=== PATIENT | female | born 2005 | race Caucasian/White ===

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

== ENCOUNTER 2025-01-23 20:42 | Inpatient (IN) ==
[2025-01-23] MEDS: SODIUM CHLORIDE 0.9% 1,000 ML IV ONE (21:43)
[2025-01-23 22:03] LABS: Basophils # (auto) 0.05 K/uL (0.00-0.20); Basophils % (auto) 0.6 %; Eosinophils # (auto) 0.44 K/uL (0.00-0.50); Eosinophils % (auto) 5.2 %; Hematocrit (blood only) 37.6 % (37.0-47.0); Hemoglobin 13.2 g/dl (12.0-16.0); Immature Granulocytes # (auto) 0.03 K/uL (0.01-0.20); Immature Granulocytes % (auto) 0.4 %; Lymphocytes # (auto) 2.82 K/uL (1.20-3.40); Mean Corpuscular Hemoglobin 31.3 pg (25.0-34.0); Mean Corpuscular Hgb Conc 35.1 g/dL (32.0-36.0); Mean Corpuscular Volume 89.1 fL (80.0-100.0); Mean Platelet Volume 9.8 fL (9.4-12.4); Monocytes # (auto) 0.72 K/uL (0.11-0.59); Monocytes % (auto) 8.4 %; Neutrophils # (auto) 4.48 K/uL (1.40-6.50); Neutrophils % (auto) 52.4 %; Platelet Count 286 K/uL (130-400); RDW Coefficient of Variation 12.2 % (11.5-14.5); RDW Standard Deviation 39.9 fL (36.4-46.3); Red Blood Count 4.22 M/uL (4.20-5.40); White Blood Count 8.54 K/ul (4.8-10.8)
[2025-01-23 22:18] LABS: Pregnancy Test, Serum Negative (Negative)
[2025-01-23 22:22] LABS: Alanine Aminotransferase 15 U/L (7-52); Albumin Globulin Ratio 1.3 (0.9-2); Albumin Level 4.2 gm/dl (3.4-5.0); Alkaline Phosphatase 52 U/L (34-104); Anion Gap 5 (3-11); Aspartate Aminotransferase 15 U/L (13-39); BUN Creatinine Ratio 18.5 (10-20); Bilirubin,Total 0.2 mg/dl (0.2-1.0); Blood Urea Nitrogen 12 mg/dl (6-23); Calcium 9.1 mg/dl (8.6-10.3); Carbon Dioxide 28 mmol/L (21-32); Chloride 106 mmol/L (98-107); Creatinine Clr Calc Pharmacy 116.3 ml/min; Globulin 3.3 gm/dl (2.5-4.0); Glucose 83 mg/dl (70-99(Fasting)); Potassium 3.5 mmol/L (3.5-5.1); Sodium 139 mmol/L (136-145); Total Protein 7.5 gm/dl (6.0-8.3)
[2025-01-23 22:27] LABS: Troponin I High Sensitivity 4.5 pg/ml (0-14)
[2025-01-23 22:31] LABS: D Dimer 410 ug/L FEU (0-500); INR 0.9 (0.9-1.1); Partial Thromboplastin Ratio 0.9; Partial Thromboplastin Time 23 Seconds (21-31); Prothrombin Time 9.6 Seconds (9.0-12.0)
--- NOTE | 2025-01-23 22:55 | Emergency Department Note ---
Impression & Plan Pain and swelling of right forearm, Upper extremity lymphadenopathy, Axillary lymphadenopathy, Cervical lymphadenopathy, Tonsillitis ED Provider Note NAME: AUREA FLORENCE AGE: 19 SEX: F : 2005 ARRIVES VIA: Walk-In INFORMANT: Patient ED PROVIDER(S): Gilles Ozuna MD CHIEF COMPLAINT: Arm swelling pain, shortness of breath PLAN: Disposition: Admit MEDICAL DECISION MAKING: The patient is a pleasant 19-year-old woman with a past medical history of anxiety, headaches, urethral stricture who presents to the emergency department via walk-in, and by her boyfriend for evaluation of ongoing right forearm swelling, redness, warmth and pain for the past week in the setting of being seen in this emergency department on 01/20 for the same symptoms. The patient had CTA of the chest that was negative for PE. She had a right upper extremity ultrasound that was negative for DVT though enlarged axillary lymph node was described. Patient reports she has since seen her PCP and a throat culture was obtained which resulted today for Staph aureus. She was prescribed an antibiotic which she took but reports pain was worsening and so presents again for evaluation. Patient reports having increasing pain in her arm which now has extended into her chest even more and she has shortness of breath associated with this. She reports right-sided neck pain and head pain. She reports feeling feverish intermittently. She correlates these symptoms with onset of sinus congestion/infection approximately 6 weeks ago and then developing sore throat and symptoms of pharyngitis a month ago. Per review of the patient's records patient has been treated with antibiotics at different points in time including Augmentin and doxycycline. Patient denies any history of back IV drug use. She denies any falls or trauma. Of note, the patient did arrive to emergency department during time of high volume, acuity and prolonged emergency department waiting times. Critical pathways initiated from triage. On evaluation the patient is anxious appearing but no acute distress, afebrile heart in the 100s and blood pressure 160s/90s and vital signs otherwise stable. She appears clinically dry. Moderate tonsillar enlargement and injection and scant exudates. Lungs clear. No murmurs, rubs, or gallops. Her right forearm demonstrates swelling/fullness of the volar aspect with associated erythema warmth and tenderness. There is no significant pain with passive stretch. Distal PMS is intact. Erythema does extend proximally to the axilla where she has tender lymphadenopathy. Given persistence of the patient's symptoms blood cultures were obtained and empiric broadened antibiotic treatment initiated with IV ceftriaxone and daptomycin. WBC, H/H and platelets within normal limits. Chemistry without metabolic acidosis. Electrolytes and LFTs without significant abnormality. CPK within normal limits. ESR and CRP are normal. D-dimer is 410, within normal limits. High-sensitivity troponin 4.5, within normal limits. UA without evidence of infection. Right upper extremity ultrasound was repeated and was negative for DVT. Enlarged axillary lymph node is unchanged. CT imaging of the right upper extremity as well as neck and head were obtained to further characterize the location of the patient's symptoms. CT soft tissue neck demonstrated bilateral multiple enlarged cervical lymph nodes as well as mild hypertrophy of the adenoids. CT of the head was negative for acute abnormalities. CT of the right humerus with redemonstration of a right epitrochlear lymph node where there is mild progression in size compared to previous though could be related to different modality. The epitrochlear lymphadenopathy is nonspecific. Additional right axillary lymph nodes are noted. CT of the forearm also obtained with report pending. Patient agrees with plan for referral to hospitalist service for consideration of admission given worsening symptoms despite prior ER visit and outpatient management. Case was d/w Dr. Leyva [facility] [place] [place] hospitalist who will evaluate the patient for admission. Further management per admitting team. Triage Nursing notes reviewed and agree them. Prior/external medical records reviewed Vital Signs: reviewed Differential diagnosis: DVT, musculoskeletal, infection, joint effusion, trauma, lymphedema, idiopathic, CHF, as well as other pathologies. ER treatment provided: See below. Diagnostics interpreted by me: ECG: Normal sinus rhythm, 91 bpm, no ectopy, no overt ST elevation or depression, QTc 383, QRS 74. Cardiac Monitoring: An order for continuous cardiac monitoring was placed and demonstrated Normal sinus rhythm, 91 bpm, no ectopy. Laboratory studies: See below Imaging studies: See below Consultation(s): Dr. Staton [facility] [place] [place] hospitalist. HPI: Per MDM. ROS: See above HPI for pertinent positives & negatives. A total of 10 systems reviewed and were otherwise negative. VITALS:See Below PHYSICAL EXAMINATION: GENERAL: Awake, alert, well-appearing, in no distress HENT: Normocephalic, atraumatic. Oropharynx with moderate tonsillar enlargement and injection and scant exudates. EYES: Normal conjunctiva. Sclera non-icteric. NECK: Supple. No nuchal rigidity. FROM. No JVD. RESPIRATORY: Clear to auscultation. CARDIAC: Tachycardic rate, normal rhythm. Extremities warm and well perfused. Pulses equal. ABDOMEN: Soft, non-distended. No tenderness to palpation. No rebound or guarding. No masses. MUSCULOSKELETAL: Chest examination reveals no tenderness. The back is symmetrical on inspection without obvious abnormality. There is no CVA tenderness to palpation. Right forearm demonstrates swelling/fullness of the volar aspect with associated erythema warmth and tenderness. There is no significant pain with passive stretch. Distal PMS is intact. Erythema does extend proximally to the axilla where she has tender lymphadenopathy. LOWER EXTREMITIES: Calves are equal size bilaterally and non-tender. No edema. No discoloration. NEURO: Normal sensorium. No sensory or motor deficits noted. SKIN: No rash or jaundice noted. Gilles Ozuna MD Past Med/Surg History Problem List (Updated 01/24/25 @ 15:38 by Nieves Brand MD) LAD (lymphadenopathy), generalized Pharyngitis Tonsillitis (Acute) Cervical lymphadenopathy (Acute) Axillary lymphadenopathy (Acute) Upper extremity lymphadenopathy (Acute) Pain and swelling of right forearm (Acute) Vasculitis (Acute) Lymph node enlargement (Acute) Edema (Acute) Recurrent cold sores Large tonsils Allergies Muscle tightness Acute sore throat (Acute) Symptoms of upper respiratory infection (URI) (Acute) Frequent UTI Right ear pain Uses control Amenorrhea Dysuria (Acute) Optic disc edema Depression Anxiety (Chronic) Low back pain (Acute) Frequent headaches Scoliosis (Chronic) Medical History Influenza A Acute URI of multiple sites Syrinx of spinal cord Concussion (~11/2019) Abdominal pain Head ache Acute pharyngitis Insect bites Ovarian cyst Kidney stone URI (upper respiratory infection) Otitis media Bronchitis Surgical History No significant past surgical history Family History Mother Diabetes Hyperthyroidism Suicidal risk Grandmother (Maternal) Hypertension Breast cancer great maternal grandmother Grandfather (Maternal) Diabetes Colorectal cancer Other No pertinent family history Denies family history of Ovarian cancer Prostate cancer Social History Smoking Status: Current every day smoker Tobacco Type: E-cigarettes / Vaping Second Hand Exposure: Yes; Do You Dip or Chew Tobacco: No; Tobacco Cessation Education Requested by Patient: No Hx Alcohol Use: No Hx Substance Use: No Preferred Language: Stateless Communication Ability: Effective Physician General Practice Required: No Beliefs That Will Affect Care: None marital status: Single Current Living Situation: Family Current Living Situation Comment: lives with family current occupational status: employed and student How many Children do You have: 0 Other Information That Helps Us Care for You: No Feels Safe at Home: Yes Safety Concerns: Feels Safe At This Time Childhood Exposure to Second-Hand Smoke: Yes Diet: regular Dental Care, Regularly: Yes Physical Activity Frequency: Daily Seatbelt Use: always Sunscreen Use: Yes Assistive Devices: None Allergies Allergies Allergy/AdvReac Type Severity Reaction Status Date / Time soap Allergy UTI, YEAST Verified 01/18/25 13:57 INFECTION Home Meds Home Medications Medication Instructions Recorded Confirmed ascorbate calcium (vitamin C) 500 500 mg PO DAILY 01/05/25 01/23/25 mg tablet Previous Rx's Medication Instructions Recorded duloxetine 60 mg capsule,delayed 60 mg PO DAILY 3 months #90 caps 02/16/24 release Microgestin 1/20 (21) 1 mg-20 mcg 1 tab PO DAILY #84 tabs 01/06/25 tablet (norethindrone ac-eth estradiol) penicillin V potassium 500 mg 500 mg PO BID #20 tabs 01/18/25 tablet valacyclovir 500 mg tablet 500 mg PO BID PRN cold sore 3 days 01/18/25 #6 tabs prednisone 10 mg tablet 40 mg (4 x 10 mg) PO DAILY 7 days 01/23/25 #28 tabs Results & Data (ED) Vital Signs Vital Signs - 24 hr 01/23/25 20:44 01/23/25 20:50 01/23/25 21:09 Temperature 36.7 C Temperature Source Temporal Artery Scan Pulse Rate 106 H 95 H Pulse Rate [Apical] Pulse Rhythm Regular Pulse Rhythm [Apical] Pulse Strength Normal Respiratory Rate 17 Respiratory Effort / Characteristics Non-Labored Spontaneous Respiratory Depth Normal Respiratory Pattern Regular Blood Pressure 161/96 H Blood Pressure [Left Arm] Blood Pressure Mean 117 Blood Pressure Mean [Left Arm] Blood Pressure Position Sitting Pulse Oximetry 100 95 Oxygen Delivery Method Room Air Room Air Sepsis Recent Fever Within 48 Hours Yes Sepsis New/Unexplained Change in Mental Status N/A Sepsis Action Taken by Nursing No Action Required 01/23/25 21:30 01/23/25 21:32 01/23/25 23:00 Temperature Temperature Source Pulse Rate Pulse Rate [Apical] 94 H 82 Pulse Rhythm Pulse Rhythm [Apical] Regular Pulse Strength Respiratory Rate 27 H 19 Respiratory Effort / Characteristics Non-Labored Respiratory Depth Normal Respiratory Pattern Blood Pressure Blood Pressure [Left Arm] 131/90 139/87 Blood Pressure Mean Blood Pressure Mean [Left Arm] 103 104 Blood Pressure Position Pulse Oximetry 94 97 Oxygen Delivery Method Room Air Room Air Sepsis Recent Fever Within 48 Hours Sepsis New/Unexplained Change in Mental Status Sepsis Action Taken by Nursing 01/24/25 01:00 01/24/25 01:09 Temperature Temperature Source Pulse Rate 94 H Pulse Rate [Apical] 90 Pulse Rhythm Pulse Rhythm [Apical] Pulse Strength Respiratory Rate 20 Respiratory Effort / Characteristics Respiratory Depth Respiratory Pattern Blood Pressure Blood Pressure [Left Arm] 133/91 Blood Pressure Mean Blood Pressure Mean [Left Arm] 105 Blood Pressure Position Pulse Oximetry 98 Oxygen Delivery Method Room Air Sepsis Recent Fever Within 48 Hours Sepsis New/Unexplained Change in Mental Status Sepsis Action Taken by Nursing Laboratory Data Attestation: I reviewed the patient's lab results. 01/23/25 20:57 01/23/25 20:57 Lab Results 01/23/25 01/23/25 01/23/25 Range/Units 20:57 21:58 23:32 WBC 8.54 (4.8-10.8) K/ul RBC 4.22 (4.20-5.40) M/uL Hgb 13.2 (12.0-16.0) g/dl Hct 37.6 (37.0-47.0) % MCV 89.1 (80.0-100.0) fL MCH 31.3 (25.0-34.0) pg MCHC 35.1 (32.0-36.0) g/dL RDW Std Deviation 39.9 (36.4-46.3) fL RDW Coeff of Caty 12.2 (11.5-14.5) % Plt Count 286 (130-400) K/uL MPV 9.8 (9.4-12.4) fL Immature Gran % (Auto) 0.4 % Neut % (Auto) 52.4 % Lymph % (Auto) 33.0 % Saline % (Auto) 8.4 % Eos % (Auto) 5.2 % Baso % (Auto) 0.6 % Neut # (Auto) 4.48 (1.40-6.50) K/uL Lymph # (Auto) 2.82 (1.20-3.40) K/uL Saline # (Auto) 0.72 H (0.11-0.59) K/uL Eos # (Auto) 0.44 (0.00-0.50) K/uL Baso # (Auto) 0.05 (0.00-0.20) K/uL Immature Gran # (Auto) 0.03 (0.01-0.20) K/uL ESR 20 (0-20) mm/hr PT 9.6 (9.0-12.0) Seconds INR 0.9 (0.9-1.1) APTT 23 (21-31) Seconds PTT Ratio 0.9 D-Dimer 410 (0-500) ug/L FEU Sodium 139 (136-145) mmol/L Potassium 3.5 (3.5-5.1) mmol/L Chloride 106 (98-107) mmol/L Carbon Dioxide 28 (21-32) mmol/L Anion Gap 5 (3-11) BUN 12 (6-23) mg/dl Creatinine 0.65 (0.6-1.2) mg/dl Est Cr Clr Drug Dosing 116.3 ml/min eGFR 129.18 BUN/Creatinine Ratio 18.5 (10-20) Glucose 83 (70-99(Fasting)) mg/dl Lactate 1.3 (0.4-2.0) mmol/L Calcium 9.1 (8.6-10.3) mg/dl Total Bilirubin 0.2 (0.2-1.0) mg/dl AST 15 (13-39) U/L ALT 15 (7-52) U/L Alkaline Phosphatase 52 (34-104) U/L Total Creatine Kinase 115 (26-192) U/L Troponin I High Sens 4.5 (0-14) pg/ml C-Reactive Protein < 0.50 (0-0.5) mg/dl Total Protein 7.5 (6.0-8.3) gm/dl Albumin 4.2 (3.4-5.0) gm/dl Globulin 3.3 (2.5-4.0) gm/dl Albumin/Globulin Ratio 1.3 (0.9-2) Procalcitonin < 0.02 (0-0.5) ng/ml HCG, Qual Negative (Negative) Urine Color Yellow Urine Appearance Turbid A (Clear) Urine pH 7.5 (4.5-7.5) Ur Specific [place] 1.017 (1.000-1.030) Urine Protein Negative (Negative) Urine Glucose (UA) Negative (Negative) Urine Ketones Negative (Negative) Urine Blood Trace H (Negative) Urine Nitrite Negative (Negative) Urine Bilirubin Negative (Negative) Urine Urobilinogen Negative (Negative) Ur Leukocyte Esterase Negative (Negative) Urine WBC (Auto) 0-5 (0-5) /hpf Urine RBC (Auto) 3-5 H (0-2) /hpf U Hyaline Cast (Auto) 0-2 (0-2) /lpf U Epithel Cells (Auto) 0-2 (0-2) /hpf Urine Bacteria (Auto) None Seen (None Seen) Nasal Screen MRSA (PCR) (Negative) 01/24/25 Range/Units 02:22 WBC (4.8-10.8) K/ul RBC (4.20-5.40) M/uL Hgb (12.0-16.0) g/dl Hct (37.0-47.0) % MCV (80.0-100.0) fL MCH (25.0-34.0) pg MCHC (32.0-36.0) g/dL RDW Std Deviation (36.4-46.3) fL RDW Coeff of Caty (11.5-14.5) % Plt Count (130-400) K/uL MPV (9.4-12.4) fL Immature Gran % (Auto) % Neut % (Auto) % Lymph % (Auto) % Saline % (Auto) % Eos % (Auto) % Baso % (Auto) % Neut # (Auto) (1.40-6.50) K/uL Lymph # (Auto) (1.20-3.40) K/uL Saline # (Auto) (0.11-0.59) K/uL Eos # (Auto) (0.00-0.50) K/uL Baso # (Auto) (0.00-0.20) K/uL Immature Gran # (Auto) (0.01-0.20) K/uL ESR (0-20) mm/hr PT (9.0-12.0) Seconds INR (0.9-1.1) APTT (21-31) Seconds PTT Ratio D-Dimer (0-500) ug/L FEU Sodium (136-145) mmol/L Potassium (3.5-5.1) mmol/L Chloride (98-107) mmol/L Carbon Dioxide (21-32) mmol/L Anion Gap (3-11) BUN (6-23) mg/dl Creatinine (0.6-1.2) mg/dl Est Cr Clr Drug Dosing ml/min eGFR BUN/Creatinine Ratio (10-20) Glucose (70-99(Fasting)) mg/dl Lactate (0.4-2.0) mmol/L Calcium (8.6-10.3) mg/dl Total Bilirubin (0.2-1.0) mg/dl AST (13-39) U/L ALT (7-52) U/L Alkaline Phosphatase (34-104) U/L Total Creatine Kinase (26-192) U/L Troponin I High Sens (0-14) pg/ml C-Reactive Protein (0-0.5) mg/dl Total Protein (6.0-8.3) gm/dl Albumin (3.4-5.0) gm/dl Globulin (2.5-4.0) gm/dl Albumin/Globulin Ratio (0.9-2) Procalcitonin (0-0.5) ng/ml HCG, Qual (Negative) Urine Color Urine Appearance (Clear) Urine pH (4.5-7.5) Ur Specific [place] (1.000-1.030) Urine Protein (Negative) Urine Glucose (UA) (Negative) Urine Ketones (Negative) Urine Blood (Negative) Urine Nitrite (Negative) Urine Bilirubin (Negative) Urine Urobilinogen (Negative) Ur Leukocyte Esterase (Negative) Urine WBC (Auto) (0-5) /hpf Urine RBC (Auto) (0-2) /hpf U Hyaline Cast (Auto) (0-2) /lpf U Epithel Cells (Auto) (0-2) /hpf Urine Bacteria (Auto) (None Seen) Nasal Screen MRSA (PCR) Negative (Negative) Administered Medications Bacitracin (Bacitracin Oint 14 Gm Tube) 1 appln EXT BID BRANDON Stop: 02/23/25 20:59 Last Admin: 01/24/25 20:14 Dose: 1 appln Documented By: BENY Duloxetine HCl (Duloxetine Hcl 60 Mg Cap) 60 mg PO DAILY BRANDON Stop: 02/23/25 08:59 Last Admin: 01/24/25 10:33 Dose: 60 mg Documented By: Miscellaneous (Microgestin 10/10: Order Awaiting Action) 1 each N/A QS BRANDON Stop: 02/23/25 07:59 Last Admin: 01/24/25 23:58 Dose: Not Given Documented By: Admin: 01/24/25 19:34 Dose: Not Given Documented By: Admin: 01/24/25 09:52 Dose: Not Given Documented By: Discontinued Medications Diphenhydramine HCl (Diphenhydramine 50 Mg/Ml Vial) Confirm Administered Dose 50 mg .ROUTE .STK-MED ONE Stop: 01/24/25 08:35 Last Admin: 01/24/25 08:37 Dose: 50 mg Documented By: Epinephrine HCl (Epinephrine Inj 1 Mg/Ml Amp) Confirm Administered Dose 2 mg .ROUTE .STK-MED ONE Stop: 01/24/25 08:36 Last Admin: 01/24/25 09:52 Dose: Not Given Documented By: Famotidine (Famotidine 20 Mg Tab) Confirm Administered Dose 40 mg .ROUTE .STK- MED ONE Stop: 01/24/25 08:37 Last Admin: 01/24/25 11:34 Dose: Not Given Documented By: Sodium Chloride (Nss) 1,000 mls @ 999 mls/hr IV .Q1H1M ONE Stop: 01/23/25 22:04 Last Infusion: 01/23/25 23:17 Dose: Infused Documented By: Admin: 01/23/25 21:43 Dose: 999 mls/hr Documented By: MYNOR Ceftriaxone Sodium (Rocephin) 2,000 mg in 50 mls @ 100 mls/hr IV NOW STA Stop: 01/23/25 23:33 Last Infusion: 01/24/25 01:11 Dose: Infused Documented By: Admin: 01/24/25 00:40 Dose: 100 mls/hr Documented By: MYNOR Daptomycin 775 mg/ Syringe 15.5 mls @ 7.75 mls/min IV NOW ONE; Protocol Stop: 01/23/25 23:15 Last Admin: 01/24/25 01:07 Dose: 7.75 mls/min Documented By: MYNOR Vancomycin HCl 1,500 mg/ (Sodium Chloride) 530 mls @ 200 mls/hr IV Q12H BRANDON Stop: 02/03/25 05:59 Last Infusion: 01/24/25 15:56 Dose: Infused Documented By: Admin: 01/24/25 06:46 Dose: 200 mls/hr Documented By: PROSPER Ioversol (Optiray 320 100ml) 100 ml IV ONCE ONE Stop: 01/24/25 00:11 Last Admin: 01/24/25 00:10 Dose: 93 ml Documented By: GARRY Methylprednisolone (Methylprednisolone 125 Mg/2 Ml Vial) Confirm Administered Dose 250 mg .ROUTE .STK-MED ONE Stop: 01/24/25 08:35 Last Admin: 01/24/25 09:54 Dose: Not Given Documented By: Mupirocin (Mupirocin 2% Oint 22 Gm Tube) 1 appln EXT NOW STA Stop: 01/24/25 01:19 Last Admin: 01/24/25 02:41 Dose: Not Given Documented By: MYNOR Imaging Data Radiologist's Impression: Chest X-Ray 01/23/25 20:50 Exam(s): XR CXR 1 VIEW EXAM: XR Chest, 1 View CLINICAL HISTORY: Reason for exam: Chest pain, nonspecific. TECHNIQUE: Frontal view of the chest. COMPARISON: Chest x-ray 06/12/2023 FINDINGS: Lungs: No consolidation. No overt edema. Pleural space: No pleural effusion. No pneumothorax. Heart: Unremarkable. No cardiomegaly. IMPRESSION: No acute cardiopulmonary abnormality. Electronically signed by: Brent Roberts MD 01/23/25 22:52 PM Venous Doppler Study 01/23/25 20:50 EXAM: US venous doppler UE RT CLINICAL HISTORY: Arm deep vein thrombosis (DVT) suspected. TECHNIQUE: Ultrasound examination of the right upper extremity veins was performed in real time and duplex. One or more of the following were performed: spectral analysis, resistive index, waveform analysis, and pulsed Doppler. COMPARISON: 01/20/2025. FINDINGS: Normal phasic, non-pulsatile, and spontaneous flow is noted in the left Internal jugular, subclavian, axillary, brachial, basilic, cephalic, radial, and ulnar veins. Visualized veins of the left upper extremity demonstrate normal compressibility. No sonographic evidence of acute deep vein thrombosis (DVT) is detected in the visualized veins of the upper extremity. Compression and Augmentation: All evaluated veins compress fully with applied transducer pressure. Augmentation of venous flow is noted with distal compression. Additional Findings: Redemonstration of a prominent lymph node in the mid-upper arm, just adjacent to the basilic vein, measuring 1.9 x 0.6 x 0.8 cm, showing an intact hilum. IMPRESSION: No sonographic evidence of acute DVT is detected at the time of examination. Redemonstration of a prominent lymph node, which shows no interval change. Disclaimer: DVT could be missed early in the disease when clot burden is minimal. For patients with moderate and high pretest probability of DVT and negative ultrasound, the [employer] clinical guidelines recommend testing with a D-dimer assay or repeat ultrasound in 5-7 days. If symptoms worsen, the Society of radiologists in ultrasound recommends repeating ultrasound even earlier. Electronically signed by Jasiel Menon 01-24-2025 12:[address] 01/23/25 23:00 EXAM: CT head/brain wo con CLINICAL HISTORY: Headache, axillary lymphadenopathy TECHNIQUE: Axial non-contrast CT scan of the brain was performed from the skull base to the high parietal region. One of the following dose reduction techniques were utilized for this exam: Automated exposure control, adjustment of the mA and/or kV according to patient size, use of iterative reconstruction. COMPARISON: Prior MRI brain on 12/10/[address] head on 10/03/2017 FINDINGS: Brain Parenchyma: Normal attenuation of the cerebral hemispheres, cerebellum, and brainstem. No evidence of acute infarct, hemorrhage, or mass effect. No abnormal areas of hypo- or hyperattenuation. Ventricular System: Ventricles are normal in size and configuration. No evidence of hydrocephalus or ventricular enlargement. Subarachnoid Spaces: Normal sulci and cisterns. No evidence of subarachnoid hemorrhage or extra-axial fluid collections. Cerebellum and Brainstem: Normal size and signal. No masses, lesions, or areas of abnormal density. Orbits: Normal appearance of the globes, optic nerves, and extraocular muscles. No evidence of orbital masses or abnormal density. Sinuses: The visualized parts of the paranasal sinuses are clear. No evidence of sinusitis or mucosal thickening. Mastoid Air Cells: Clear mastoid air cells. No evidence of mastoiditis. Skull: Normal skull morphology. IMPRESSION: 1. Normal CT of the head without contrast. 2. No significant interval changes. Electronically signed by Jasiel Menon 01-24-2025 01:43 AM Soft Tissue Neck CT 01/23/25 23:00 EXAM: CT soft tissue neck w con CLINICAL HISTORY: neck pain, axillary lymphadenopathy TECHNIQUE: CT scan of the neck was performed with administration of intravenous contrast. Sagittal and coronal reconstructions were obtained. 93 ML OPTIRAY 320 was administered for post contrast images. One of the following dose reduction techniques were utilized for this exam: Automated exposure control, adjustment of the mA and/or kV according to patient size, and use of iterative reconstruction. COMPARISON: None. FINDINGS: Nasopharynx: There is mild enlargement of soft tissues along the posterior nasopharyngeal wall with mild narrowing of posterior nasopharynx. Oropharynx: Normal size and appearance. No masses or abnormal enhancement. Larynx and Hypopharynx: Normal appearance of the laryngeal structures. Vocal cords are normal in appearance and movement. No masses or abnormal enhancement. Thyroid Gland: Mildly enlarged thyroid gland. No discrete nodules or masses. Normal enhancement post-contrast. Salivary Glands: Parotid, submandibular, and sublingual glands are normal in size and appearance. No evidence of sialadenitis or masses. Lymph Nodes: There are multiple bilateral mildly enlarged, slightly enhancing cervical lymph nodes seen. For reference, largest at left level 4 measures 1.2 x 0.8 cm and 0.5 at level 4 measures 1.3 x 0.9 cm. Vascular Structures: Normal enhancement of the carotid arteries, jugular veins, and other major vessels post-contrast. No evidence of vascular malformations, aneurysms, or thrombosis. Soft Tissues: Normal appearance of the soft tissues of the neck. No abnormal masses, swelling, or fluid collections. Bones: Normal appearance of the cervical spine and surrounding bony structures. No fractures, lytic or sclerotic lesions. Additional findings: Mildly deviated medially mildly leftward deviated nasal septum. The visualized secyions through brain appeared unremarkable. IMPRESSION: 1. Bilateral multiple enlarged cervical lymph nodes. Please correlate clinically. 2. Mild hypertrophy of adenoids is noted with resultant mild narrowing of posterior nasopharynx. 3. Mildly leftward deviated nasal septum. Electronically signed by Jasiel Menon 01-24-2025 02:07 AM Discharge Plan Visit Data Chief Complaint: Shortness of Breath/Dyspnea Stated Complaint: SOB,CHEST PAIN,PAIN IN ARM,NECK,AND SHOULDER ED Provider: Gilles Ozuna Discharge Problem: Pain and swelling of right forearm, Upper extremity lymphadenopathy, Axillary lymphadenopathy, Cervical lymphadenopathy, Tonsillitis Patient Disposition: Admitted As Inpatient Condition: Fair Discharge Instructions Interventions: ED Discharge Assessment Last Done: 01/24/25 03:46
[2025-01-23 23:09] LABS: Appearance Urine Turbid (Clear); Bacteria Urine Automated None Seen (None Seen); Bilirubin Urine Negative (Negative); Blood Urine Trace (Negative); Cast Urine Automated 0-2 /lpf (0-2); Color Urine Yellow; Epithelial Cell Urine Auto 0-2 /hpf (0-2); Glucose Urine UA Negative (Negative); Ketones Urine Negative (Negative); Leukocyte Esterase Urine Negative (Negative); Nitrite Urine Negative (Negative); Protein Urine Negative (Negative); Specific Gravity Urine 1.017 (1.000-1.030); Urobilinogen Urine Negative (Negative); WBC Urine Automated 0-5 /hpf (0-5); pH Urine 7.5 (4.5-7.5)
[2025-01-23 23:24] LABS: C Reactive Protein < 0.50 mg/dl (0-0.5); Creatine Kinase 115 U/L (26-192)
[2025-01-24] MEDS: OPTIRAY 320 100ml IV ONE (00:10)
[2025-01-24] MEDS: cefTRIAXone SODIUM 2,000 MG/50 ML BAG IV STA (00:40)
--- NOTE | 2025-01-24 00:53 | Ultrasound Report ---
EXAM: US venous doppler UE RT CLINICAL HISTORY: Arm deep vein thrombosis (DVT) suspected. TECHNIQUE: Ultrasound examination of the right upper extremity veins was performed in real time and duplex. One or more of the following were performed: spectral analysis, resistive index, waveform analysis, and pulsed Doppler. COMPARISON: 01/20/2025. FINDINGS: Normal phasic, non-pulsatile, and spontaneous flow is noted in the left Internal jugular, subclavian, axillary, brachial, basilic, cephalic, radial, and ulnar veins. Visualized veins of the left upper extremity demonstrate normal compressibility. No sonographic evidence of acute deep vein thrombosis (DVT) is detected in the visualized veins of the upper extremity. Compression and Augmentation: All evaluated veins compress fully with applied transducer pressure. Augmentation of venous flow is noted with distal compression. Additional Findings: Redemonstration of a prominent lymph node in the mid-upper arm, just adjacent to the basilic vein, measuring 1.9 x 0.6 x 0.8 cm, showing an intact hilum. IMPRESSION: No sonographic evidence of acute DVT is detected at the time of examination. Redemonstration of a prominent lymph node, which shows no interval change. Disclaimer: DVT could be missed early in the disease when clot burden is minimal. For patients with moderate and high pretest probability of DVT and negative ultrasound, the [employer] clinical guidelines recommend testing with a D-dimer assay or repeat ultrasound in 5-7 days. If symptoms worsen, the Society of radiologists in ultrasound recommends repeating ultrasound even earlier. Electronically signed by Jasiel Menon 01-24-2025 12:53 AM
[2025-01-24] MEDS: DAPTOmycin 775 MG in SYRINGE 0 ML IV ONE (01:07)
--- NOTE | 2025-01-24 01:44 | CT Scan Report ---
EXAM: CT head/brain wo con CLINICAL HISTORY: Headache, axillary lymphadenopathy TECHNIQUE: Axial non-contrast CT scan of the brain was performed from the skull base to the high parietal region. One of the following dose reduction techniques were utilized for this exam: Automated exposure control, adjustment of the mA and/or kV according to patient size, use of iterative reconstruction. COMPARISON: Prior MRI brain on 12/10/[address] head on 10/03/2017 FINDINGS: Brain Parenchyma: Normal attenuation of the cerebral hemispheres, cerebellum, and brainstem. No evidence of acute infarct, hemorrhage, or mass effect. No abnormal areas of hypo- or hyperattenuation. Ventricular System: Ventricles are normal in size and configuration. No evidence of hydrocephalus or ventricular enlargement. Subarachnoid Spaces: Normal sulci and cisterns. No evidence of subarachnoid hemorrhage or extra-axial fluid collections. Cerebellum and Brainstem: Normal size and signal. No masses, lesions, or areas of abnormal density. Orbits: Normal appearance of the globes, optic nerves, and extraocular muscles. No evidence of orbital masses or abnormal density. Sinuses: The visualized parts of the paranasal sinuses are clear. No evidence of sinusitis or mucosal thickening. Mastoid Air Cells: Clear mastoid air cells. No evidence of mastoiditis. Skull: Normal skull morphology. IMPRESSION: 1. Normal CT of the head without contrast. 2. No significant interval changes. Electronically signed by Jasiel Menon 01-24-2025 01:43 AM
--- NOTE | 2025-01-24 02:07 | CT Scan Report ---
EXAM: CT soft tissue neck w con CLINICAL HISTORY: neck pain, axillary lymphadenopathy TECHNIQUE: CT scan of the neck was performed with administration of intravenous contrast. Sagittal and coronal reconstructions were obtained. 93 ML OPTIRAY 320 was administered for post contrast images. One of the following dose reduction techniques were utilized for this exam: Automated exposure control, adjustment of the mA and/or kV according to patient size, and use of iterative reconstruction. COMPARISON: None. FINDINGS: Nasopharynx: There is mild enlargement of soft tissues along the posterior nasopharyngeal wall with mild narrowing of posterior nasopharynx. Oropharynx: Normal size and appearance. No masses or abnormal enhancement. Larynx and Hypopharynx: Normal appearance of the laryngeal structures. Vocal cords are normal in appearance and movement. No masses or abnormal enhancement. Thyroid Gland: Mildly enlarged thyroid gland. No discrete nodules or masses. Normal enhancement post-contrast. Salivary Glands: Parotid, submandibular, and sublingual glands are normal in size and appearance. No evidence of sialadenitis or masses. Lymph Nodes: There are multiple bilateral mildly enlarged, slightly enhancing cervical lymph nodes seen. For reference, largest at left level 4 measures 1.2 x 0.8 cm and 0.5 at level 4 measures 1.3 x 0.9 cm. Vascular Structures: Normal enhancement of the carotid arteries, jugular veins, and other major vessels post-contrast. No evidence of vascular malformations, aneurysms, or thrombosis. Soft Tissues: Normal appearance of the soft tissues of the neck. No abnormal masses, swelling, or fluid collections. Bones: Normal appearance of the cervical spine and surrounding bony structures. No fractures, lytic or sclerotic lesions. Additional findings: Mildly deviated medially mildly leftward deviated nasal septum. The visualized secyions through brain appeared unremarkable. IMPRESSION: 1. Bilateral multiple enlarged cervical lymph nodes. Please correlate clinically. 2. Mild hypertrophy of adenoids is noted with resultant mild narrowing of posterior nasopharynx. 3. Mildly leftward deviated nasal septum. Electronically signed by Jasiel Menon 01-24-2025 02:07 AM
--- NOTE | 2025-01-24 02:10 | Hospitalist Consultation ---
Date of Consultation January 24, 2025 History of Present Illness History of Present Illness December 19 flu like symptomsArm started to swell. AUgmentin for 7 days Birhgt phillip red, on forearm December 26. Doxycycline for sinus infection pril - 7 days Staph infection - January 18 had staph infection in throat. January 12 flu like symptoms - throat hurting from start and getting worse. January 18. Today cough more raspy and chest still sore. Swelling spreading to back and chest. No blood clot Cold sores from a week ago - never took valcyclovir Penicillin started yesterday around 4:30pm - not helped with throat Feels a little swollen when she swallows. Large tonsils - repeated tonsil infections but never calderon this bad. Allergies Allergy/AdvReac Type Severity Reaction Status Date / Time soap Allergy UTI, YEAST Verified 01/18/25 13:57 INFECTION Home Medications Medication Instructions Recorded Confirmed Type duloxetine 60 mg capsule,delayed 60 mg PO DAILY 3 months #90 caps 02/16/24 01/23/25 Rx release ascorbate calcium (vitamin C) 500 500 mg PO DAILY 01/05/25 01/23/25 History mg tablet Microgestin 20 (21) 1 mg-20 mcg 1 tab PO DAILY #84 tabs 01/06/25 01/23/25 Rx tablet (norethindrone ac-eth estradiol) penicillin V potassium 500 mg 500 mg PO BID #20 tabs 01/18/25 01/23/25 Rx tablet valacyclovir 500 mg tablet 500 mg PO BID PRN cold sore 3 days 01/18/25 01/23/25 Rx #6 tabs prednisone 10 mg tablet 40 mg (4 x 10 mg) PO DAILY 7 days 01/23/25 01/23/25 Rx #28 tabs Patient History Medical History Influenza A Acute URI of multiple sites Syrinx of spinal cord Concussion (~11/2019) Abdominal pain Head ache Acute pharyngitis Insect bites Ovarian cyst Kidney stone URI (upper respiratory infection) Otitis media Bronchitis Surgical History No significant past surgical history Family History Mother Diabetes Hyperthyroidism Suicidal risk Grandmother (Maternal) Hypertension Breast cancer Grandfather (Maternal) Diabetes Colorectal cancer Other No pertinent family history Denies family history of Ovarian cancer Prostate cancer Social History (Updated 01/18/25 @ 14:01 by Harini Cummins LPN) Smoking Status: Never smoker Tobacco Type: E-cigarettes / Vaping Second Hand Exposure: Yes; Do You Dip or Chew Tobacco: No; Hx Alcohol Use: No Hx Substance Use: No Preferred Language: Pashto Communication Ability: Effective Deputy Program Manager Required: No marital status: Single Current Living Situation: Family Current Living Situation Comment: mom, step father, 2 sisters. 2 dogs and 1 rabbit current occupational status: employed and student How many Children do You have: 0 Feels Safe at Home: Yes Childhood Exposure to Second-Hand Smoke: Yes Diet: regular Dental Care, Regularly: Yes Physical Activity Frequency: Daily Seatbelt Use: always Sunscreen Use: Yes Results & Data Results & Data Vital Signs (Past 12 Hours) Vital Signs Temp Pulse Pulse Resp BP BP Pulse Ox 01/24/25 01:09 94 H 01/24/25 01:00 90 20 133/91 98 01/23/25 23:00 82 19 139/87 97 01/23/25 21:30 94 H 27 H 131/90 94 01/23/25 21:09 95 H 01/23/25 20:50 95 01/23/25 20:44 36.7 C 106 H 17 161/96 H 100 O2 Del Method 01/24/25 01:09 01/24/25 01:00 Room Air 01/23/25 23:00 Room Air 01/23/25 21:30 Room Air 01/23/25 21:09 01/23/25 20:50 Room Air 01/23/25 20:44 Room Air PG Care Time/CCT Total # of Minutes Spent Total Time Spent with Patient: Total time spent is greater than 50% in coordination of care (as documented) at patient's floor/unit and/or counseling patient: Coding
--- NOTE | 2025-01-24 02:14 | CT Scan Report ---
EXAM: CT humerus RT w con CLINICAL HISTORY: suspected forearm cellulitis, axillary lymphadenopathy. TECHNIQUE: Axial CT scan of the right humerus with IV contrast (93 mL of OPTIRAY 320 was administered), coronal and sagittal reconstruction was obtained. One of the following dose reduction techniques was utilized for this exam.Automated exposure control, adjustment of the mA and/or kV according to patient size, and use of iterative reconstruction. COMPARISON: 01/20/2025 US. FINDINGS: Normal bone mineralization. Normal alignment of the humerus. No acute fracture or dislocation. Normal alignment of the shoulder and elbow joints with preserved joint spaces. Medial epitrochlear lymph node, measuring 8.8 x 8.7 x 1.8 mm. Right axillary lymph nodes, the largest measuring 2.2 x 1.1 cm Mild fat stranding is noted at the posterior elbow. IMPRESSION: 1. No acute bone fracture or dislocation. 2. Redemonstration of a right epitrochlear lymph node. (Mild progression in size since the previous study, could be due to different imaging modalities) Epitrochlear lymphadenopathy is nonspecific, differential diagnosis includes infectious causes and foreign bodies, and other less likely differentials should be also considered. Clinical correlation is advised. 3. A few right axillary lymph nodes. 4. No significant radiological signs of cellulitis; however, non-specific mild fat stranding was noted in the posterior elbow. Clinical correlation is advised. Electronically signed by Jasiel Menon 01-24-2025 02:14 AM
--- NOTE | 2025-01-24 02:26 | CT Scan Report ---
EXAM: CT forearm RT w con CLINICAL HISTORY: ? Forearm cellulitis, axillary lymphadenopathy TECHNIQUE: CT scan of the Right forearm was performed with the administration of intravenous contrast. Axial images were obtained, with coronal and sagittal reformatted images reviewed. One of the following dose reduction techniques was utilized for this exam. Automated exposure control, adjustment of the mA and/or kV according to patient size, and use of iterative reconstruction. COMPARISON: None. FINDINGS: Bones: The bony structures are intact with no evidence of acute fracture or dislocation. There is no evidence of lytic or sclerotic lesions. The cortical and trabecular bone patterns are normal. Joints: The joint spaces are preserved without evidence of joint effusion, subluxation, or significant degenerative changes. Soft Tissues: The soft tissues appear normal without evidence of swelling, hematoma, or foreign bodies. There are no abnormal calcifications or masses. Additional Findings: small, nonspecific enlarged lymph node at the elbow joint with preserved fatty hilum measures about 7x3 mm. IMPRESSION: 1. Normal CT scan of the RT. forearm without contrast. 2. Non-specific enlarged lymph node at right elbow joint. 3. No evidence of acute fracture, dislocation, or significant soft tissue abnormality. Electronically signed by Jasiel Menon 01-24-2025 02:25 AM
[2025-01-24] MEDS: MUPIROCIN 2% OINT 22 GM TUBE EXT STA (02:41)
--- NOTE | 2025-01-24 03:34 | History & Physical Report ---
Date of Service January 24, 2025 Assessment & Plan (1) Lymph node enlargement: (2) Tonsillitis: (3) Pharyngitis: (4) Upper extremity lymphadenopathy: (5) Recurrent cold sores: Plan 19 year old female presents to the ER with worsening right arm, chest, back swelling and sore throat #Right Arm, breast/chest and back swelling / tonsillitis/pharyngitis Please see History for course of events. Swelling is consistent with right lymphatic duct drainage issues. Given timing this most likely is due to her throat infection. The causes of this are: 1) Pharyngitis/tonsillitis was viral (biofire URI PCR previously negative) or adequately treated bacterial infection (course of Augmentin then doxycycline in December) and she is left with significant lymphadenopathy causing swelling which may or may not slowly improve with time. 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 For this reason she will be admitted for IV vancomycin pending repeat throat culture and sensitivities will need to be requested (last sample only held for 5 days and sensitivities were not requested). I do not think her last throat swab was MSSA and this would have been adequately treated with Augmentin originally. MRSA nasal swab sent but irregardless would recommend treatment until repeat throat culture returns. The obvious argument against this scenario is her lack of getting significant worse with normal WBC/CRP/procalcitonin despite not having adequate treatment but perhaps the doxycycline partially treated the MRSA. 3) Lymphadenopathy not associated with pharyngitis and at some point should be biopsied however would recommend this only if she fails to improve with ant ibiotics. Provide patient with arm compression sleeve to help with drainage Given unclear cause I believe she warrants an ID consult #Enlarged epitrochlear lymph node The enlarged lymph nodes further down the arm also suggest she may have had cellulitis at some point vs. just back up from poor right lymphatic duct drainage. I don't see any evidence of cellulitis on today's exam. Treatment as above VTE Prophylaxis - Low risk Disposition - admit to med/surg Admission and Anticipated Discharge Date Admission Date: January 24, 2025 History of Present Illness Chief Complaint: Right upper extremity swelling Throat swelling Primary Care Provider: DO Jovita Valle is a 19 year old female who presents to the ER with right ar m/chest/back swelling and sore throat. She has a significant history of recurrent tonsillitis with cervical lymphadenopathy but nothing this bad in the past. Current history somewhat complex but started on December 19 and was feeling fine before then. December 19: Per PCP note at that time she presented for a routine exam but reported having nasal congestion and sweats. She reports she was having sore throat. She was noted to have severe oropharyngeal erythema and moderately enlarged tonsils on exam. No lymphadenopathy was noted. Rash was noted on right forearm (in A/P but not exam) but unclear etiology of this at that time. Flu/COVID nasal PCR was negative. Group A strep (presumably throat) PCR negative (as far as I can tell this was not reflexed to a culture). She was prescribed 7 days of Augmentin - unclear for what diagnosis but perhaps still concern for strep throat. She reports taking this but it did not improve her symptoms. December 26: She went to express care with note at that time main concern was for sinus congestion. Per note she took 2 doses of Augmentin then stopped due to size of the pill (however patient told me she took full course). She was prescribed doxycycline for a sinus infection. The patient thinks it was around this time she started having arm swelling and a phillip red spot near her elbow. January 11: Seen in the ER with flu like symptoms. Labs unremarkable. Biofire PCR negative. Group A strep PCR negative. Monoscreen/Lyme negative. Diagnosed with URI symptoms and acute sore throat with no medication given. January 18: Follow up ER for flu-like symptoms. Saw PCP and noted to have some tonsil exudates. Throat culture taken and subsequently grew staph aureus but no sensitivities performed. Penicillin VK started prescribed January 19 although the p atient reports only starting this yesterday. Noted muscle tightness in right arm but reports rash of upper right arm improved. January 20: Called food preparation kitchen aide provider about rash deep purple moved up arm into her back and breast tender and swollen. Advised to go to ER for US to assess for DVT. Seen in ER for progressive discoloration and mild swelling in the right upper extremity getting worse over last month. CT performed with no evidence of venous obstruction, US without evidence of DVT. Suspected lymphedema vs. vasculitis and prescribed prednisone which she reports she hasn't taken but was given Solu-medrol 80mg IV while in the ER without any improvement in her symptoms. She returns today for worsening of the same symptoms but mostly the swelling. Throat remains sore and feels swollen when she swallow. No fever or chills. Allergies Allergy/AdvReac Type Severity Reaction Status Date / Time soap Allergy UTI, YEAST Verified 01/18/25 13:57 INFECTION Home Medications Medication Instructions Recorded Confirmed Type duloxetine 60 mg capsule,delayed 60 mg PO DAILY 3 months #90 caps 02/16/24 01/23/25 Rx release ascorbate calcium (vitamin C) 500 500 mg PO DAILY 01/05/25 01/23/25 History mg tablet Microgestin /20 (21) 1 mg-20 mcg 1 tab PO DAILY #84 tabs 01/06/25 01/23/25 Rx tablet (norethindrone ac-eth estradiol) penicillin V potassium 500 mg 500 mg PO BID #20 tabs 01/18/25 01/23/25 Rx tablet valacyclovir 500 mg tablet 500 mg PO BID PRN cold sore 3 days 01/18/25 01/23/25 Rx #6 tabs prednisone 10 mg tablet 40 mg (4 x 10 mg) PO DAILY 7 days 01/23/25 01/23/25 Rx #28 tabs Past Med/Surg History Problem List (Updated 01/24/25 @ 04:21 by Angel Leyva MD) Pharyngitis Tonsillitis (Acute) Cervical lymphadenopathy (Acute) Axillary lymphadenopathy (Acute) Upper extremity lymphadenopathy (Acute) Pain and swelling of right forearm (Acute) Vasculitis (Acute) Lymph node enlargement (Acute) Edema (Acute) Recurrent cold sores Large tonsils Allergies Muscle tightness Acute sore throat (Acute) Symptoms of upper respiratory infection (URI) (Acute) Frequent UTI Right ear pain Uses control Amenorrhea Dysuria (Acute) Optic disc edema Depression Anxiety (Chronic) Low back pain (Acute) Frequent headaches Scoliosis (Chronic) Medical History Influenza A Acute URI of multiple sites Syrinx of spinal cord Concussion (~11/2019) Abdominal pain Head ache Acute pharyngitis Insect bites Ovarian cyst Kidney stone URI (upper respiratory infection) Otitis media Bronchitis Surgical History No significant past surgical history Family History Mother Diabetes Hyperthyroidism Suicidal risk Grandmother (Maternal) Hypertension Breast cancer great maternal grandmother Grandfather (Maternal) Diabetes Colorectal cancer Other No pertinent family history Denies family history of Ovarian cancer Prostate cancer Social History Smoking Status: Current every day smoker Tobacco Type: E-cigarettes / Vaping Second Hand Exposure: Yes; Do You Dip or Chew Tobacco: No; Hx Alcohol Use: No Hx Substance Use: No Preferred Language: Yi Communication Ability: Effective Cost Control Supervisor Required: No Beliefs That Will Affect Care: None marital status: Single Current Living Situation: Family Current Living Situation Comment: lives with family current occupational status: employed and student How many Children do You have: 0 Feels Safe at Home: Yes Childhood Exposure to Second-Hand Smoke: Yes Diet: regular Dental Care, Regularly: Yes Physical Activity Frequency: Daily Seatbelt Use: always Sunscreen Use: Yes Assistive Devices: None Review of Systems Review of Systems: All systems reviewed & are unremarkable except as noted in HPI & below Physical Exam Constitutional: WD/WN, vitals as above Eyes: + anicteric sclerae; normal pupil size ENMT: Mouth: no trismus Throat: uvula midline and + tonsil abnormality (erythematous mildly enlarged b/l equal without pus); no peritonsillar mass Respiratory: normal respiratory effort, lungs clear to auscultation Cardiovascular: Rate/Rhythm: regular rate and regular rhythm Heart Sounds: no murmur Extremities: + edema (non pitting right extremity upper chest wall) Gastrointestinal (Abdomen): normal bowel sounds, soft, nontender, no hep atosplenomegaly Skin: + erythema (very mild on medal right elb ow but consistent with amount of swelling) Neurologic: moves all extremities and awake; not confused Lymphatic: + cervical lymphadenopathy Results & Data Results & Data Vital Signs (Past 12 Hours) Vital Signs Temp Pulse Pulse Resp BP BP Pulse Ox 01/24/25 01:09 94 H 01/24/25 01:00 90 20 133/91 98 01/23/25 23:00 82 19 139/87 97 01/23/25 21:30 94 H 27 H 131/90 94 01/23/25 21:09 95 H 01/23/25 20:50 95 01/23/25 20:44 36.7 C 106 H 17 161/96 H 100 O2 Del Method 01/24/25 01:09 01/24/25 01:00 Room Air 01/23/25 23:00 Room Air 01/23/25 21:30 Room Air 01/23/25 21:09 01/23/25 20:50 Room Air 01/23/25 20:44 Room Air Laboratory Results Abnormal lab results 01/23/25 01/23/25 Range/Units 20:57 21:58 [place] # (Auto) 0.72 H (0.11-0.59) K/uL Urine Appearance Turbid A (Clear) Urine Blood Trace H (Negative) Urine RBC (Auto) 3-5 H (0-2) /hpf Diagnostic Findings CT head/brain wo con CLINICAL HISTORY: Headache, axillary lymphadenopathy TECHNIQUE: Axial non-contrast CT scan of the brain was performed from the skull base to the high parietal region. One of the following dose reduction techniques were utilized for this exam: Automated exposure control, adjustment of the mA and/or kV according to patient size, use of iterative reconstruction. COMPARISON: Prior MRI brain on 12/10/[address] head on 10/03/2017 FINDINGS: Brain Parenchyma: Normal attenuation of the cerebral hemispheres, cerebellum, and brainstem. No evidence of acute infarct, hemorrhage, or mass effect. No abnormal areas of hypo- or hyperattenuation. Ventricular System: Ventricles are normal in size and configuration. No evidence of hydrocephalus or ventricular enlargement. Subarachnoid Spaces: Normal sulci and cisterns. No evidence of subarachnoid hemorrhage or extra-axial fluid collections. Cerebellum and Brainstem: Normal size and signal. No masses, lesions, or areas of abnormal density. Orbits: Normal appearance of the globes, optic nerves, and extraocular muscles. No evidence of orbital masses or abnormal density. Sinuses: The visualized parts of the paranasal sinuses are clear. No evidence of sinusitis or mucosal thickening. Mastoid Air Cells: Clear mastoid air cells. No evidence of mastoiditis. Skull: Normal skull morphology. IMPRESSION: 1. Normal CT of the head without contrast. 2. No significant interval changes. CT soft tissue neck w con CLINICAL HISTORY: neck pain, axillary lymphadenopathy TECHNIQUE: CT scan of the neck was performed with administration of intravenous contrast. Sagittal and coronal reconstructions were obtained. 93 ML OPTIRAY 320 was administered for post contrast images. One of the following dose reduction techniques were utilized for this exam: Automated exposure control, adjustment of the mA and/or kV according to patient size, and use of iterative reconstruction. COMPARISON: None. FINDINGS: Nasopharynx: There is mild enlargement of soft tissues along the posterior nasopharyngeal wall with mild narrowing of posterior nasopharynx. Oropharynx: Normal size and appearance. No masses or abnormal enhancement. Larynx and Hypopharynx: Normal appearance of the laryngeal structures. Vocal cords are normal in appearance and movement. No masses or abnormal enhancement. Thyroid Gland: Mildly enlarged thyroid gland. No discrete nodules or masses. Normal enhancement post-contrast. Salivary Glands: Parotid, submandibular, and sublingual glands are normal in size and appearance. No evidence of sialadenitis or masses. Lymph Nodes: There are multiple bilateral mildly enlarged, slightly enhancing cervical lymph nodes seen. For reference, largest at left level 4 measures 1.2 x 0.8 cm and 0.5 at level 4 measures 1.3 x 0.9 cm. Vascular Structures: Normal enhancement of the carotid arteries, jugular veins, and other major vessels post-contrast. No evidence of vascular malformations, aneurysms, or thrombosis. Soft Tissues: Normal appearance of the soft tissues of the neck. No abnormal masses, swelling, or fluid collections. Bones: Normal appearance of the cervical spine and surrounding bony structures. No fractures, lytic or sclerotic lesions. Additional findings: Mildly deviated medially mildly leftward deviated nasal septum. The visualized secyions through brain appeared unremarkable. IMPRESSION: 1. Bilateral multiple enlarged cervical lymph nodes. Please correlate clinically. 2. Mild hypertrophy of adenoids is noted with resultant mild narrowing of posterior nasopharynx. 3. Mildly leftward deviated nasal septum. CT forearm RT w con CLINICAL HISTORY: ? Forearm cellulitis, axillary lymphadenopathy TECHNIQUE: CT scan of the Right forearm was performed with the administration of intravenous contrast. Axial images were obtained, with coronal and sagittal reformatted images reviewed. One of the following dose reduction techniques was utilized for this exam. Automated exposure control, adjustment of the mA and/or kV according to patient size, and use of iterative reconstruction. COMPARISON: None. FINDINGS: Bones: The bony structures are intact with no evidence of acute fracture or dislocation. There is no evidence of lytic or sclerotic lesions. The cortical and trabecular bone patterns are normal. Joints: The joint spaces are preserved without evidence of joint effusion, subluxation, or significant degenerative changes. Soft Tissues: The soft tissues appear normal without evidence of swelling, hematoma, or foreign bodies. There are no abnormal calcifications or masses. Additional Findings: small, nonspecific enlarged lymph node at the elbow joint with preserved fatty hilum measures about 7x3 mm. IMPRESSION: 1. Normal CT scan of the RT. forearm without contrast. 2. Non-specific enlarged lymph node at right elbow joint. 3. No evidence of acute fracture, dislocation, or significant soft tissue abnormality. CT humerus RT w con CLINICAL HISTORY: suspected forearm cellulitis, axillary lymphadenopathy. TECHNIQUE: Axial CT scan of the right humerus with IV contrast (93 mL of OPTIRAY 320 was administered), coronal and sagittal reconstruction was obtained. One of the following dose reduction techniques was utilized for this exam.Automated exposure control, adjustment of the mA and/or kV according to patient size, and use of iterative reconstruction. COMPARISON: 01/20/2025 US. FINDINGS: Normal bone mineralization. Normal alignment of the humerus. No acute fracture or dislocation. Normal alignment of the shoulder and elbow joints with preserved joint spaces. Medial epitrochlear lymph node, measuring 8.8 x 8.7 x 1.8 mm. Right axillary lymph nodes, the largest measuring 2.2 x 1.1 cm Mild fat stranding is noted at the posterior elbow. IMPRESSION: 1. No acute bone fracture or dislocation. 2. Redemonstration of a right epitrochlear lymph node. (Mild progression in size since the previous study, could be due to different imaging modalities) Epitrochlear lymphadenopathy is nonspecific, differential diagnosis includes infectious causes and foreign bodies, and other less likely differentials should be also considered. Clinical correlation is advised. 3. A few right axillary lymph nodes. 4. No significant radiological signs of cellulitis; however, non-specific mild fat stranding was noted in the posterior elbow. Clinical correlation is advised. US venous doppler UE RT CLINICAL HISTORY: Arm deep vein thrombosis (DVT) suspected. TECHNIQUE: Ultrasound examination of the right upper extremity veins was performed in real time and duplex. One or more of the following were performed: spectral analysis, resistive index, waveform analysis, and pulsed Doppler. COMPARISON: 01/20/2025. FINDINGS: Normal phasic, non-pulsatile, and spontaneous flow is noted in the left Internal jugular, subclavian, axillary, brachial, basilic, cephalic, radial, and ulnar veins. Visualized veins of the left upper extremity demonstrate normal compressibility. No sonographic evidence of acute deep vein thrombosis (DVT) is detected in the visualized veins of the upper extremity. Compression and Augmentation: All evaluated veins compress fully with applied transducer pressure. Augmentation of venous flow is noted with distal compression. Additional Findings: Redemonstration of a prominent lymph node in the mid-upper arm, just adjacent to the basilic vein, measuring 1.9 x 0.6 x 0.8 cm, showing an intact hilum. IMPRESSION: No sonographic evidence of acute DVT is detected at the time of examination. Redemonstration of a prominent lymph node, which shows no interval change. Medications Administered ER Medications Given: Normal saline 1L bolus Ceftriaxone 2000mg IV Daptomycin 775mg IV ECG Rate (beats per minute): 91 Rhythm: normal sinus Findings: no acute ischemic change Comparison ECG Date: from (January 20, 2025) Change: no significant change Code Status & VTE Plan Code Status Full VTE Prophylaxis Plan VTE Prophylaxis will be ordered: No PG Care Time/CCT Total # of Minutes Spent Total Time Spent with Patient: Total time spent is greater than 50% in coordination of care (as documented) at patient's floor/unit and/or counseling patient: Coding Level of Care Code 45747 INT INP/OBS CARE 3/75MIN Diagnoses Lymph node enlargement R59.9 Tonsillitis J03.90 Pharyngitis J02.9 Upper extremity lymphadenopathy R59.0 Recurrent cold sores B00.1
[2025-01-24] MEDS ORDERED: hydrOXYzine HCl 25 MG TAB PO PRN (04:58)
[2025-01-24] MEDS ORDERED: VANCOMYCIN CONSULT ACTIVE PRN (04:58)
[2025-01-24] MEDS ORDERED: valACYclovir HCL 500 MG TABLET PO PRN (04:58)
[2025-01-24] MEDS: VANCOMYCIN HCL 1,500 MG in SODIUM CHLORIDE 0.9% 500 ML IV SCH (06:46)
[2025-01-24 07:38] VITALS: RESP 16
[2025-01-24] MEDS: diphenhydrAMINE 50 MG/ML VIAL ONE (08:37)
--- NOTE | 2025-01-24 08:51 | Infectious Disease Consult ---
Date of Consultation January 24, 2025 Assessment & Plan (1) Cervical lymphadenopathy: (2) Axillary lymphadenopathy: (3) Upper extremity lymphadenopathy: (4) Pharyngitis: Plan Problems: #Persistent sore throat #RUE/chest/back swelling #Lymphadenopathy: R epitrochlear, few R axillary Micro: 01/24 MRSA nares: neg 01/24 Throat cx: pending 01/23 BCx x2: pending 01/18 Throat culture: Staph aureus 01/11 RPP: neg 01/11 Lyme screen: neg 01/11 [place] screen: neg 01/11 Rapid Strep: neg 12/19 Rapid Strep: neg 12/19 COVID-19, flu: neg Abx: Vanc 01/24 - present [place] 01/24 19 yo F who presented to the ED on 01/23 with R arm/chest/back swelling and persistent sore throat for >1 month. Pt has a history of recurrent tonsillitis with cervical lymphadenopathy, but has not been this severe in the past. See HPI of consult note for recent timeline of events. Was seen multiple times by PCP, urgent care, ED over the last month for symptoms of sinus congestion, sore throat. Prescribed Augmentin x 7 days on 12/19, doxy x 7 days on 12/26, penicillin VK x 10 days on 01/18. Labs over the last month have included unremarkable CBC and CMP, RPP negative, Lyme screen negative, mono screen negative, rapid Strep negative. A throat culture from 01/18 grew Staph aureus, sensitivities pending. She presented to the ED on 01/20 due to a RUE rash moving up into her arm, back, and breast. In the ED, was noted to have mild edema of the RUE in comparison to the L, some mild cyanotic appearing skin discoloration to medial aspect of RUE, no rash. Labs showed no leukocytosis. CTA chest with no venous obstruction or PE. US RUE showed no DVT. Showed nonspecific lymph node enlargement in mid aspect of R arm. Suspicion was for vasculitis or lymphedema. Pt was given a dose of solumedrol and offered steroids. Pt stated she was actually prescribed prednisone by her PCP recently for tonsillitis issues, but she had not picked it up yet, but would go pick it up. She was discharged from the ED. Pt then returned to the ED on 01/23 for worsening symptoms. On presentation, pt was afebrile, HR 106. Labs with unremarkable CBC and CMP, procalcitonin <0.02. CXR negative. RUE venous duplex US with no DVT, but again showed prominent lymph node in mid upper arm. CT R forearm and humerus with non-specific enlarged epitrochlear lymph node, a few R axillary lymph nodes, no significant radiological signs of cellulitis, however non-specific mild fat stranding noted in posterior elbow. CT neck with bilateral multiple enlarged cervical lymph nodes. Continues to have sore throat. 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 Sensitivities added on to staph aureus from 01/18 throat culture. Blood cultures and repeat throat culture pending. Discussion: Unclear etiology--no rash noted on RUE/chest/back, but very trace patches of mild erythema, perhaps some mild swelling of RUE compared to LUE. Staph aureus grew in recent throat culture--perhaps could represent colonization vs bacterial pharyngotonsillitis. However, might expect more infectious signs/symptoms in a persistent Staph aureus bacterial pharyngotonsillitis, such as fever, leukocytosis. Pt has a cat--denies scratches or bites from her cat. Considered cat scratch disease given regional lymphadenopathy, however there does not seem to be an inoculation site or much erythema of the overlying skin. Recommendations: - Follow-up Staph aureus sensitivities - Continue vanc for now and monitor for improvement - Follow-up blood cultures and repeat throat culture - Ordered HIV screen, throat GC/CT, syphilis screen, Bartonella henselae Ab Will continue to follow. Consultation Information Consultation was provided via telemedicine using two-way real-time interactive telecommunication between the patient and the telemedicine provider. For the duration of the visit, the provider was performing the assessment from a different facility than the patient. This includesuse of bluetooth stethoscope forauscultationperformed by the telepresenter that the telemedicine provider can hear if described in the physical exam. Registered Nurse Step Down contact information: Please call [facility] . (Phone Number For Physician Use Only) After establishing a telemedicine visit, patient was: Patient was verified with two unique identifiers, Patient/authorized rep acknowledged consent and understanding and Gave permission to continue telehealth session Time Spent with Patient: Initial => 40 min History of Present Illness Reason for Consultation: lymphadenopathy, pharyngitis/tonsillitis, ? MRSA Attending Physician: Karson Barragan DO History of Present Illness 19 yo F who presented to the ED on 01/23 with R arm/chest/back swelling and persistent sore throat. Pt has a history of recurrent tonsillitis with cervical lymphadenopathy, but has not been this severe in the past. She began having a sore throat around 12/16. 12/19: Saw PCP, reported nasal congestion and sweats, noted to have severe oropharyngeal erythema. COVID-19, flu, group A Strep negative. Prescribed Augmentin x 7 days. 12/26: Saw urgent care. Had continued sinus congestion, sore throat, cough. Prescribed doxy x 7 days 01/11: Seen in ED for persistent sore throat, sinus congestion. Labs showed unremarkable CBC and CMP, RPP negative, Lyme screen negative, mono screen negative, Group A Strep negative. 01/18: Saw PCP. Noted her rhinorrhea was much better. Noted to have large tonsils on exam with some exudates, mod to severe erythema. Prescribed penicillin VK 500 mg P BID x 10 days. Obtained throat culture which grew Staph aureus. 01/20: called PCP office reporting RUE rash was deep purple and moved up into her arm, into her back and breast--was advised to present to the ED. In the ED, was noted to have mild edema of the RUE in comparison to the L, some mild cyanotic appearing skin discoloration to medial aspect of RUE, no rash. Labs showed no leukocytosis. CTA chest with no venous obstruction or PE. US RUE showed no DVT. Showed nonspecific lymph node enlargement in mid aspect of R arm. Suspicion was for vasculitis or lyphedema. Pt was given a dose of solumedrol and offered steroids. Pt stated she was actually prescribed prednisone by her PCP recently for tonsillitis issues, but she had not picked it up yet, but would go pick it up. She was discharged from the ED. Pt then returned to the ED on 01/23 for worsening symptoms. On presentation, pt was afebrile, HR 106. Labs with unremarkable CBC and CMP, procalcitonin <0.02. CXR negative. RUE venous duplex US with no DVT, but again showed prominent lymph node in mid upper arm. CT R forearm and humerus with non-specific enlarged epitrochlear lymph node, a few R axillary lymph nodes, no significant r adiological signs of cellulitis, however non-specific mild fat stranding noted in posterior elbow. CT neck with bilateral multiple enlarged cervical lymph nodes. Continues to have sore throat. 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 Sensitivities added on to staph aureus from 01/18 throat culture. Blood cultures and repeat throat culture pending. Allergies Allergy/AdvReac Type Severity Reaction Status Date / Time soap Allergy UTI, YEAST Verified 01/18/25 13:57 INFECTION Home Medications Medication Instructions Recorded Confirmed Type duloxetine 60 mg capsule,delayed 60 mg PO DAILY 3 months #90 caps 02/16/24 01/23/25 Rx release ascorbate calcium (vitamin C) 500 500 mg PO DAILY 01/05/25 01/23/25 History mg tablet Microgestin 1/20 (21) 1 mg-20 mcg 1 tab PO DAILY #84 tabs 01/06/25 01/23/25 Rx tablet (norethindrone ac-eth estradiol) penicillin V potassium 500 mg 500 mg PO BID #20 tabs 01/18/25 01/23/25 Rx tablet valacyclovir 500 mg tablet 500 mg PO BID PRN cold sore 3 days 01/18/25 01/23/25 Rx #6 tabs prednisone 10 mg tablet 40 mg (4 x 10 mg) PO DAILY 7 days 01/23/25 01/23/25 Rx #28 tabs Patient History Medical History Influenza A Acute URI of multiple sites Syrinx of spinal cord Concussion (~11/2019) Abdominal pain Head ache Acute pharyngitis Insect bites Ovarian cyst Kidney stone URI (upper respiratory infection) Otitis media Bronchitis Surgical History No significant past surgical history Family History Mother Diabetes Hyperthyroidism Suicidal risk Grandmother (Maternal) Hypertension Breast cancer great maternal grandmother Grandfather (Maternal) Diabetes Colorectal cancer Other No pertinent family history Denies family history of Ovarian cancer Prostate cancer Social History Smoking Status: Current every day smoker Tobacco Type: E-cigarettes / Vaping Second Hand Exposure: Yes; Do You Dip or Chew Tobacco: No; Tobacco Cessation Education Requested by Patient: No Hx Alcohol Use: No Hx Substance Use: No Preferred Language: Indian Communication Ability: Effective Die Filer Required: No Beliefs That Will Affect Care: None marital status: Single Current Living Situation: Family Current Living Situation Comment: lives with family current occupational status: employed and student How many Children do You have: 0 Other Information That Helps Us Care for You: No Feels Safe at Home: Yes Safety Concerns: Feels Safe At This Time Childhood Exposure to Second-Hand Smoke: Yes Diet: regular Dental Care, Regularly: Yes Physical Activity Frequency: Daily Seatbelt Use: always Sunscreen Use: Yes Assistive Devices: None Review of System A complete ROS was performed and is negative except as mentioned in the HPI. Physical Exam Physical Exam: GEN: fatigued appearing HEENT: pharyngeal erythema, no exudates, no oral ulcers RESP: No increased work of breathing EXT: slight edema or RUE > LUE SKIN: trace erythema of medial R forearm, medial R breast, R back NEURO: Alert and oriented. Answers all questions appropriately. Speech not slurred. PSYCH: Normal mood, affect appropriate. Results & Data Vital Signs (Past 12 Hours) Vital Signs Temp Pulse Pulse Resp BP Pulse Ox O2 Del Method 01/24/25 07:37 36.7 C 80 16 108/69 99 Room Air 01/24/25 05:00 36.6 C 86 22 136/92 99 Room Air 01/24/25 04:59 36.6 C 86 22 136/92 99 Room Air 01/24/25 01:09 94 H 01/24/25 01:00 90 20 133/91 98 Room Air 01/23/25 23:00 82 19 139/87 97 Room Air 01/23/25 21:30 94 H 27 H 131/90 94 Room Air 01/23/25 21:09 95 H 01/23/25 20:50 95 Room Air Laboratory Results Short CBC 01/23/25 Range/Units 20:57 WBC 8.54 (4.8-10.8) K/ul Hgb 13.2 (12.0-16.0) g/dl Hct 37.6 (37.0-47.0) % Plt Count 286 (130-400) K/uL BMP 01/23/25 20:57 Sodium 139 Potassium 3.5 Chloride 106 Carbon Dioxide 28 BUN 12 Creatinine 0.65 Glucose 83 Calcium 9.1 Cardiac Enzymes 01/23/25 Range/Units 20:57 Total Creatine Kinase 115 (26-192) U/L Liver Function 01/23/25 Range/Units 20:57 Total Bilirubin 0.2 (0.2-1.0) mg/dl AST 15 (13-39) U/L ALT 15 (7-52) U/L Alkaline Phosphatase 52 (34-104) U/L Albumin 4.2 (3.4-5.0) gm/dl Urine 01/23/25 Range/Units 21:58 Urine Color Yellow Urine Appearance Turbid A (Clear) Urine pH 7.5 (4.5-7.5) Ur Specific [place] 1.017 (1.000-1.030) Urine Protein Negative (Negative) Urine Glucose (UA) Negative (Negative) Diagnostic Findings Chest X-Ray 01/23/25 20:50 Exam(s): XR CXR 1 VIEW EXAM: XR Chest, 1 View CLINICAL HISTORY: Reason for exam: Chest pain, nonspecific. TECHNIQUE: Frontal view of the chest. COMPARISON: Chest x-ray 06/12/2023 FINDINGS: Lungs: No consolidation. No overt edema. Pleural space: No pleural effusion. No pneumothorax. Heart: Unremarkable. No cardiomegaly. IMPRESSION: No acute cardiopulmonary abnormality. Electronically signed by: Brent Roberts MD 01/23/25 22:52 PM Venous Doppler Study 01/23/25 20:50 EXAM: US venous doppler UE RT CLINICAL HISTORY: Arm deep vein thrombosis (DVT) suspected. TECHNIQUE: Ultrasound examination of the right upper extremity veins was performed in real time and duplex. One or more of the following were performed: spectral analysis, resistive index, waveform analysis, and pulsed Doppler. COMPARISON: 01/20/2025. FINDINGS: Normal phasic, non-pulsatile, and spontaneous flow is noted in the left Internal jugular, subclavian, axillary, brachial, basilic, cephalic, radial, and ulnar veins. Visualized veins of the left upper extremity demonstrate normal compressibility. No sonographic evidence of acute deep vein thrombosis (DVT) is detected in the visualized veins of the upper extremity. Compression and Augmentation: All evaluated veins compress fully with applied transducer pressure. Augmentation of venous flow is noted with distal compression. Additional Findings: Redemonstration of a prominent lymph node in the mid-upper arm, just adjacent to the basilic vein, measuring 1.9 x 0.6 x 0.8 cm, showing an intact hilum. IMPRESSION: No sonographic evidence of acute DVT is detected at the time of examination. Redemonstration of a prominent lymph node, which shows no interval change. Disclaimer: DVT could be missed early in the disease when clot burden is minimal. For patients with moderate and high pretest probability of DVT and negative ultrasound, the [employer] clinical guidelines recommend testing with a D-dimer assay or repeat ultrasound in 5-7 days. If symptoms worsen, the Society of radiologists in ultrasound recommends repeating ultrasound even earlier. Electronically signed by Jasiel Menon 01-24-2025 12:[address] 01/23/25 23:00 EXAM: CT forearm RT w con CLINICAL HISTORY: ? Forearm cellulitis, axillary lymphadenopathy TECHNIQUE: CT scan of the Right forearm was performed with the administration of intravenous contrast. Axial images were obtained, with coronal and sagittal reformatted images reviewed. One of the following dose reduction techniques was utilized for this exam. Automated exposure control, adjustment of the mA and/or kV according to patient size, and use of iterative reconstruction. COMPARISON: None. FINDINGS: Bones: The bony structures are intact with no evidence of acute fracture or dislocation. There is no evidence of lytic or sclerotic lesions. The cortical and trabecular bone patterns are normal. Joints: The joint spaces are preserved without evidence of joint effusion, subluxation, or significant degenerative changes. Soft Tissues: The soft tissues appear normal without evidence of swelling, hematoma, or foreign bodies. There are no abnormal calcifications or masses. Additional Findings: small, nonspecific enlarged lymph node at the elbow joint with preserved fatty hilum measures about 7x3 mm. IMPRESSION: 1. Normal CT scan of the RT. forearm without contrast. 2. Non-specific enlarged lymph node at right elbow joint. 3. No evidence of acute fracture, dislocation, or significant soft tissue abnormality. Electronically signed by Jasiel Menon 01-24-2025 02:[address] 01/23/25 23:00 EXAM: CT head/brain wo con CLINICAL HISTORY: Headache, axillary lymphadenopathy TECHNIQUE: Axial non-contrast CT scan of the brain was performed from the skull base to the high parietal region. One of the following dose reduction techniques were utilized for this exam: Automated exposure control, adjustment of the mA and/or kV according to patient size, use of iterative reconstruction. COMPARISON: Prior MRI brain on 12/10/[address] head on 10/03/2017 FINDINGS: Brain Parenchyma: Normal attenuation of the cerebral hemispheres, cerebellum, and brainstem. No evidence of acute infarct, hemorrhage, or mass effect. No abnormal areas of hypo- or hyperattenuation. Ventricular System: Ventricles are normal in size and configuration. No evidence of hydrocephalus or ventricular enlargement. Subarachnoid Spaces: Normal sulci and cisterns. No evidence of subarachnoid hemorrhage or extra-axial fluid collections. Cerebellum and Brainstem: Normal size and signal. No masses, lesions, or areas of abnormal density. Orbits: Normal appearance of the globes, optic nerves, and extraocular muscles. No evidence of orbital masses or abnormal density. Sinuses: The visualized parts of the paranasal sinuses are clear. No evidence of sinusitis or mucosal thickening. Mastoid Air Cells: Clear mastoid air cells. No evidence of mastoiditis. Skull: Normal skull morphology. IMPRESSION: 1. Normal CT of the head without contrast. 2. No significant interval changes. Electronically signed by Jasiel Menon 01-24-2025 01:[address] 01/23/25 23:00 EXAM: CT humerus RT w con CLINICAL HISTORY: suspected forearm cellulitis, axillary lymphadenopathy. TECHNIQUE: Axial CT scan of the right humerus with IV contrast (93 mL of OPTIRAY 320 was administered), coronal and sagittal reconstruction was obtained. One of the following dose reduction techniques was utilized for this exam.Automated exposure control, adjustment of the mA and/or kV according to patient size, and use of iterative reconstruction. COMPARISON: 01/20/2025 US. FINDINGS: Normal bone mineralization. Normal alignment of the humerus. No acute fracture or dislocation. Normal alignment of the shoulder and elbow joints with preserved joint spaces. Medial epitrochlear lymph node, measuring 8.8 x 8.7 x 1.8 mm. Right axillary lymph nodes, the largest measuring 2.2 x 1.1 cm Mild fat stranding is noted at the posterior elbow. IMPRESSION: 1. No acute bone fracture or dislocation. 2. Redemonstration of a right epitrochlear lymph node. (Mild progression in size since the previous study, could be due to different imaging modalities) Epitrochlear lymphadenopathy is nonspecific, differential diagnosis includes infectious causes and foreign bodies, and other less likely differentials should be also considered. Clinical correlation is advised. 3. A few right axillary lymph nodes. 4. No significant radiological signs of cellulitis; however, non-specific mild fat stranding was noted in the posterior elbow. Clinical correlation is advised. Electronically signed by Jasiel Menon 01-24-2025 02:14 AM Soft Tissue Neck CT 01/23/25 23:00 EXAM: CT soft tissue neck w con CLINICAL HISTORY: neck pain, axillary lymphadenopathy TECHNIQUE: CT scan of the neck was performed with administration of intravenous contrast. Sagittal and coronal reconstructions were obtained. 93 ML OPTIRAY 320 was administered for post contrast images. One of the following dose reduction techniques were utilized for this exam: Automated exposure control, adjustment of the mA and/or kV according to patient size, and use of iterative reconstruction. COMPARISON: None. FINDINGS: Nasopharynx: There is mild enlargement of soft tissues along the posterior nasopharyngeal wall with mild narrowing of posterior nasopharynx. Oropharynx: Normal size and appearance. No masses or abnormal enhancement. Larynx and Hypopharynx: Normal appearance of the laryngeal structures. Vocal cords are normal in appearance and movement. No masses or abnormal enhancement. Thyroid Gland: Mildly enlarged thyroid gland. No discrete nodules or masses. Normal enhancement post-contrast. Salivary Glands: Parotid, submandibular, and sublingual glands are normal in size and appearance. No evidence of sialadenitis or masses. Lymph Nodes: There are multiple bilateral mildly enlarged, slightly enhancing cervical lymph nodes seen. For reference, largest at left level 4 measures 1.2 x 0.8 cm and 0.5 at level 4 measures 1.3 x 0.9 cm. Vascular Structures: Normal enhancement of the carotid arteries, jugular veins, and other major vessels post-contrast. No evidence of vascular malformations, aneurysms, or thrombosis. Soft Tissues: Normal appearance of the soft tissues of the neck. No abnormal masses, swelling, or fluid collections. Bones: Normal appearance of the cervical spine and surrounding bony structures. No fractures, lytic or sclerotic lesions. Additional findings: Mildly deviated medially mildly leftward deviated nasal septum. The visualized secyions through brain appeared unremarkable. IMPRESSION: 1. Bilateral multiple enlarged cervical lymph nodes. Please correlate clinically. 2. Mild hypertrophy of adenoids is noted with resultant mild narrowing of posterior nasopharynx. 3. Mildly leftward deviated nasal septum. Electronically signed by Jasiel Menon 01-24-2025 02:07 AM Medications Administered Current Inpatient Medications Duloxetine HCl (Duloxetine Hcl 60 Mg Cap) 60 mg PO DAILY BRANDON Stop: 02/23/25 08:59 Last Admin: 01/24/25 10:33 Dose: 60 mg Hydroxyzine HCl (Hydroxyzine Hcl 25 Mg Tab) 25 mg PO Q6H PRN PRN Reason: Itching Stop: 02/23/25 04:57 Vancomycin HCl 1,500 mg/ (Sodium Chloride) 530 mls @ 200 mls/hr IV Q12H BRANDON Stop: 02/03/25 05:59 Last Admin: 01/24/25 06:46 Dose: 200 mls/hr Miscellaneous (Microgestin 10/10: Order Awaiting Action) 1 each N/A QS BR[place]ON Stop: 02/23/25 07:59 Last Admin: 01/24/25 09:52 Dose: Not Given Miscellaneous Information (Vancomycin Consult Active) 1 each N/A UD PRN PRN Reason: Consult Stop: 02/23/25 04:57 Valacyclovir HCl (Valacyclovir Hcl 500 Mg Tablet) 500 mg PO BID PRN PRN Reason: cold sore Stop: 01/31/25 04:57
[2025-01-24] MEDS: EPINEPHrine INJ 1 MG/ML AMP ONE (09:52)
[2025-01-24] MEDS: methylPREDNISolone 125 MG/2 ML VIAL ONE (09:54)
[2025-01-24] MEDS: DULoxetine HCL 60 MG CAP PO SCH (10:33)
--- NOTE | 2025-01-24 11:03 | Hospitalist Progress Note ---
Date of Service January 24, 2025 Assessment & Plan (1) Pharyngitis: (2) Tonsillitis: (3) LAD (lymphadenopathy), generalized: Plan Jovita is young pretty much healthy 19 yo female admitted with generalized lymphadenopathy and h/o sequential URI including pharyngitis, URI and h/o reso lving cellulitis. Admitted for complete work up as she presented to ED twice with similar history. Obviously concerning for underlying immunity issues, MRSA probability looks pretty low given her vitals have been clearly stable throughout and is not toxic appearing. #Generalized lymphadenopathy *BL cervical, Right axillary and right epitrochlear. BL cervical 2/2 to pharyngitis RA and RET: 2/2 to cellulitis. Both pharyngitis and cellulitis seems resolving. Less odd of MRSA given evolvement of sx. - Will follow throat swab CS - Vitals:stable - PE: LNs noted, blotchy skin in right forearm. no active cellulitis. - Labs: WBC: WNL, CRP: WNL, ESR: WNL , Procalcitonin: negative - Imaging: CT forearm, CT angio chest, CT neck: Non emergent findings excepts LNs enlargement. - s/p IV Daptomycin and cefepime in the ED - ID on board: recs continue vanco HIV, RPR, Bartonella ordered. 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 - Given MRSA nares negative and no other labs as well as sx typical of MRSA, will hold abx for now. PLAN: - Close observation - Follow Blood culture/ throat swab CS. - Monitor WBC and temperature curve - CRP repeat AM. - Plan LN biopsy tomorrow AM; Jovita agrees with this plan. - NPO tonight. - Lab: will check OSCAR level. Dispo: Home once stable DVT prophylaxis: low risk Diet: regular Admission and Anticipated Discharge Date Admission Date: January 24, 2025 Supervising Physician Co-Signing Physician Notes I personally examined the patient and verified all hernandez points of history and exam, discussed case, and agree with decision making with Dr Brand extensively reviewed HPInotes around December 19 she had onset of pharyngitis, around December 26 she had onset of right arm patch of bright red hot extremely tender skin that has since faded to purple and then faded to its current dull purple-pink slightly thicker. During the early part of December she had fevers, notes feeling feverish since, but when asked when the last time she had a temp above 101, she believes it was probably at least 2 weeks ago. Vitals noted, in general she is awake and alert pleasant no distress. HEENT normocephalic atraumatic mucous membranes moist, tonsils are enlarged but there is no erythema or exudatetonsils probably about 3+, oropharynx patent. She has right greater than left tender cervical anterior adenopathy. Right forearm has slightly thickened almost skin colored but slightly pinkish-purple discoloration nontender area on the flexor surface that is just distal to the elbow to about assisted down the forearm, I can feel 1 small node in the proximal area of this, it seems to be mobile and is tender as well. She has mobile tender axillary adenopathy. The area in question on her back just posterior to her axilla has mild nonspecific skin discoloration. She also draws attention to an area on the upper outer portion of her right breast that has a mild pinkish-purple discoloration and is mildly tender, although I cannot appreciate any lymph nodes (exam done with female resident as well as female nurse present in the room). Neuro shows cranial nerves II through XII are grossly intact gross motor and sensory are intact. Labs and diagnostics noted. Adenopathy while active infection or lymphoma this processes would obviously be of biggest concern, her time course seems more fitting with infection than anything malignantunfortunately her CT chest from only a few days ago is exceedingly reassuring without concerning adenopathy, making lymphoma highly unlikely. Her lack of ongoing fevers, no leukocytosis, CRP of less than 0.5 procalcitonin of less than 0.2 and physical exam all plead away from active/ongoing infection. I suspect she probably had 2 processes at playprobably a fairly severe viral (with possibly secondary bacterial overgrow th) pharyngitis leading to the cervical adenopathy, as well as a week later right arm cellulitis (and given how she described it and the ongoing adenopathy probably right arm lymphangitis)and I suspect that the antibiotics that she was on clear the infection, but given that she had 2 infections at the same time, both provoking a significant degree of lymphadenopathy, this is probably why her nodes are still up. Discussed that a lymph node biopsy could be extremely helpful here, given that reactive nodes would be almost confirmatory that this was the case, and other pathology would obviously lead us in the appropriate directionshe noted multiple times that she would like to know as definitively as possible what was going onand therefore agrees to proceed with biopsy. I do not necessarily see the benefit of ongoing antibiotics with no clear source of infection. Like infectious disease, I did consider Bartonellabut given her lack of ongoing fevers and given her negative CRP/procalcitonin, this seems quite unlikely (or if she had it, given that she was treated with doxycycline during her course it could have helped quell the infection - although by guidelines if bartonella were at play we'd likely want to treat longer - given this unlikely but potential conundrum of partially treated bartonella - agree w sending titer and would treat if positive - or if fevers recur without a clear alternate source). Subjective Jovita was having reaction to Vancomycin this morning when I saw her. Endorsed facial, scalp flushing, redness and itching everywhere but No fever, SOB,CP,Syncope,LOC,headache, neck rigidity, belly pain, diarrhoea. Endorse sickness for couple of weeks, h/o multiple antibiotics use. Afebrile throughout, other vitals stable. Sounds like her sickness were sequential of pretty bad pharyngitis, flu and arm cellulitis. The way she explains her arm was initially red, later turned out purplish and now its fading sounds like resolving cellulitis with use of multiple antibiotic. No h/o MRSA, severe sickness. Review of Systems Review of Systems: As per HPI Physical Exam Physical Exam: Constitutional:Flushing in face and scalp,was hot at face, relatively cold in limbs, not in acute distress HEENT: Atraumatic, Normocephalic, No conjunctival injection CVS: S1 S2 no murmur, Regular Rhythm, no LE edema Respiratory: BL equal air entry with NVBS. No rhonchi, wheezes, or crackles. No increased work of breathing GI: Soft, Nondistended, Nontender, Normal Bowel sounds + MSK: No gross deformities noted Skin: Mild swelling in right forearm, faintly blotchy but nor erythematous now, non tender. Arm feels little tout. No crepitation, pitting. Neuro: Alert, Oriented to TPP, No Focal deficit. Psych: Mood and Affect congruent, Cooperative on exam Results & Data Results & Data Vital Signs (Past 12 Hours) Vital Signs Temp Pulse Pulse Resp BP Pulse Ox O2 Del Method 01/24/25 07:37 36.7 C 80 16 108/69 99 Room Air 01/24/25 05:00 36.6 C 86 22 136/92 99 Room Air 01/24/25 04:59 36.6 C 86 22 136/92 99 Room Air 01/24/25 01:09 94 H 01/24/25 01:00 90 20 133/91 98 Room Air
[2025-01-24] MEDS: FAMOTIDINE 20 MG TAB ONE (11:34)
--- NOTE | 2025-01-24 15:20 | Pharmacy Report ---
Pharmacy PK ABX Note - Date of Service January 24, 2025 - Assessment and Plan Assessment 19 year old F receiving Vancomycin for treatment of recurrent tonsillitis with cervical lymphadenopathy. She was seen multiple times over the last month by PCP, urgent care, and ED. She was given multiple course of antibiotics including Augmentin, doxycycline, and penicillin VK. * Pertinent microbiologic data includes: Throat culture from 01/18 grew S. Aureus (sensitivities have been added on and are pending), Blood cultures x 2 from 01/23 are pending, and throat culture from 01/24 is pending. MRSA nasal swab is negative. * ID has been consulted-- recommends to continue vancomycin and monitor for improvement. Day # 2 of antimicrobial therapy. Plan Vancomycin * Maintenance dose: 1500 mg IV every 12 hours * Regimen is predicted to achieve target AUC/YOVANI of 400-600 mg/L.hr * Random level ordered for: 01/25 with morning labs. Pharmacy will continue to follow and will adjust dose/frequency as necessary. Thank you. Pharmacy has transitioned to AUC monitoring for vancomycin. AUC/YOVANI is the preferred PK/PD target and is associated with decreased risk of nephrotoxicity compared to traditional trough targets.
--- NOTE | 2025-01-24 19:04 | Billing Data ---
Date of Service January 24, 2025 Coding Level of Care Code 38901 SUB INP/OBS CARE
[2025-01-24] MEDS: BACITRACIN OINT 14 GM TUBE EXT SCH (20:14)
--- NOTE | 2025-01-24 22:22 | Electrocardiogram Report ---
Test Reason : Blood Pressure : */* mmHG Vent. Rate : 91 BPM Atrial Rate : 91 BPM P-R Int : 144 ms QRS Dur : 74 ms QT Int : 312 ms P-R-T Axes : 67 51 16 degrees QTcB Int : 383 ms Normal sinus rhythm Septal infarct (cited on or before 20-Jan-2025) Abnormal ECG When compared with ECG of 20-Jan-2025 12:20, No significant change was found Confirmed by Smith Alejo ([id number]) on 01/24/2025 10:21:48 PM Referred By: REFERRED SELF Confirmed By: Smith Alejo
[2025-01-25] MEDS ORDERED: VANCOMYCIN LEVEL ONE (05:00)
[2025-01-25 06:58] LABS: Hematocrit (blood only) 37.2 % (37.0-47.0); Hemoglobin 12.7 g/dl (12.0-16.0); Mean Corpuscular Hemoglobin 30.2 pg (25.0-34.0); Mean Corpuscular Hgb Conc 34.1 g/dL (32.0-36.0); Mean Corpuscular Volume 88.4 fL (80.0-100.0); Mean Platelet Volume 9.7 fL (9.4-12.4); Platelet Count 275 K/uL (130-400); RDW Coefficient of Variation 12.4 % (11.5-14.5); RDW Standard Deviation 39.9 fL (36.4-46.3); Red Blood Count 4.21 M/uL (4.20-5.40); White Blood Count 7.49 K/ul (4.8-10.8)
[2025-01-25 07:30] VITALS: BP 113/72; PULSE 94; TEMP 97.9; O2SAT 99
[2025-01-25] MEDS ORDERED: Nursing to Pharmacy Communication SCH (10:45)
[2025-01-25] MEDS: PATIENT'S OWN ORAL CONTRACEPTIVE PO SCH (10:50)
--- NOTE | 2025-01-25 12:12 | Discharge Summary ---
Date of Service January 25, 2025 Admission HPI Per Admitting Provider Jovita Mccartney is a 19 year old female who presents to the ER with right arm/chest/back swelling and sore throat. She has a significant history of recurrent tonsillitis with cervical lymphadenopathy but nothing this bad in the past. Current history somewhat complex but started on December 19 and was feeling fine before then. December 19: Per PCP note at that time she presented for a routine exam but reported having nasal congestion and sweats. She reports she was having sore throat. She was noted to have severe oropharyngeal erythema and moderately enlarged tonsils on exam. No lymphadenopathy was noted. Rash was noted on right forearm (in A/P but not exam) but unclear etiology of this at that time. Flu/COVID nasal PCR was negative. Group A strep (presumably throat) PCR negative (as far as I can tell this was not reflexed to a culture). She was prescribed 7 days of Augmentin - unclear for what diagnosis but perhaps still concern for strep throat. She reports taking this but it did not improve her symptoms. December 26: She went to express care with note at that time main concern was for sinus congestion. Per note she took 2 doses of Augmentin then stopped due to size of the pill (however patient told me she took full course). She was prescribed doxycycline for a sinus infection. The patient thinks it was around this time she started having arm swelling and a phillip red spot near her elbow. January 11: Seen in the ER with flu like symptoms. Labs unremarkable. Biofire PCR negative. Group A strep PCR negative. Monoscreen/Lyme negative. Diagnosed with URI symptoms and acute sore throat with no medication given. January 18: Follow up ER for flu-like symptoms. Saw PCP and noted to have some tonsil exudates. Throat culture taken and subsequently grew staph aureus but no sensitivities performed. Penicillin VK started prescribed January 19 although the patient reports only starting this yesterday. Noted muscle tightness in right arm but reports rash of upper right arm improved. January 20: Called operations research manager provider about rash deep purple moved up arm into her back and breast tender and swollen. Advised to go to ER for US to assess for DVT. Seen in ER for progressive discoloration and mild swelling in the right upper extremity getting worse over last month. CT performed with no evidence of venous obstruction, US without evidence of DVT. Suspected lymphedema vs. vasculitis and prescribed prednisone which she reports she hasn't taken but was given Solu-medrol 80mg IV while in the ER without any improvement in her symptoms. She returns today for worsening of the same symptoms but mostly the swelling. Throat remains sore and feels swollen when she swallow. No fever or chills. Admission Exam Per Admitting Provider Constitutional: WD/WN, vitals as above Eyes: + anicteric sclerae; normal pupil size ENMT: Mouth: no trismus Throat: uvula midline and + tonsil abnormality (erythematous mildly enlarged b/l equal without pus); no peritonsillar mass Respiratory: normal respiratory effort, lungs clear to auscultation Cardiovascular: Rate/Rhythm: regular rate and regular rhythm Heart Sounds: no murmur Extremities: + edema (non pitting right extremity upper chest wall) Gastrointestinal (Abdomen): normal bowel sounds, soft, nontender, no hepatosplenomegaly Skin: + erythema (very mild on medal right elb ow but consistent with amount of swelling) Neurologic: moves all extremities and awake; not confused Lymphatic: + cervical lymphadenopathy Principal Diagnosis Resolved infections with residual reactive lymphadenopathy. Discharge Exam Constitutional:Flushing in face and scalp,was hot at face, relatively cold in limbs, not in acute distress HEENT: Atraumatic, Normocephalic, No conjunctival injection CVS: S1 S2 no murmur, Regular Rhythm, no LE edema Respiratory: BL equal air entry with NVBS. No rhonchi, wheezes, or crackles. No increased work of breathing GI: Soft, Nondistended, Nontender, Normal Bowel sounds + MSK: No gross deformities noted Skin: Mild swelling in right forearm, faintly blotchy but nor erythematous now, non tender. Arm feels little tout. No crepitation, pitting. Neuro: Alert, Oriented to TPP, No Focal deficit. Psych: Mood and Affect congruent, Cooperative on exam Discharge Data Allergies Allergy/AdvReac Type Severity Reaction Status Date / Time soap Allergy UTI, YEAST Verified 01/18/25 13:57 INFECTION Consultations 01/24/25 01:35 ED Decision to Admit Stat 01/24/25 04:20 Consult Infectious Diseases Routine Ordered Studies 01/23/25 20:50 US venous doppler UE RT Urgent 01/23/25 23:00 CT arm [CT forearm RT w con] Stat CT arm [CT humerus RT w con] Stat CT head/brain wo con Stat CT soft tissue neck w con Stat 01/25/25 IR biopsy lymph US Routine Hospital Course (1) Pharyngitis: (2) Tonsillitis: (3) LAD (lymphadenopathy), generalized: Plan Jovita is young pretty much healthy 19 yo female admitted with generalized lymphadenopathy and h/o sequential URI including pharyngitis, URI and h/o resolving cellulitis. Admitted for complete work up as she presented to ED twice with similar history. Throat swab CS, Blood CS came nack negative. #Generalized lymphadenopathy *BL cervical, Right axillary and right epitrochlear. BL cervical 2/2 to pharyngitis RA and RET: 2/2 to cellulitis. Both pharyngitis and cellulitis seems resolving. . - Vitals:stable - PE: LNs noted, blotchy skin in right forearm. no active cellulitis. - Labs: WBC: WNL, CRP: WNL, ESR: WNL , Procalcitonin: negative - Imaging: CT forearm, CT angio chest, CT neck: Non emergent findings excepts LNs enlargement. 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 - MRSA nares negative - Throat swab CS: Unremarkable. - She did not continue antibiotics after admission at hospital , though was given daptomycin and cefepime at ED. Vancomycin was started but developed elvia syndrome, later decided to DC not because reaction but seemingly not indicated. - Case discussed with two radiology MD and PAs, who do not recommend LNs biopsy at this point as they are pretty convinced that they are reactive lymph nodes d/t her recent infection and she looks pretty stable. Hence deferred. - OSCAR has been sent to r/o possibility of autoimmune disease-- follow outpatient. Plan for Outpatient F,u: Review pending labs including OSCAR, Bartonella , chlamydia, gonorrhoea swab Serial f.u for clinical judgement. No more need of antibiotics Total Time Total Time Spent Total Time Spent (In Minutes): See attending's attestation Discharge Plan Discharge Items Patient Disposition: Home - Self-Care Reason For Visit: SUSPECTED MRSA THROAT INFECTION Discharge Diagnosis: Reactive lymphadenitis. Condition on Discharge: Fair Activity: Resume your previous activity Non-emergency contact: Primary Care Provider Call non-emergency contact if: your symptoms worsen Follow-up/Referrals: Wallace Mckee, [Primary Care Provider] - 02/01/25 12:00 pm Diet: Regular Addtl Attending Provider Instructions: You were admitted to the hospital for suspected MRSA infection. Primary team, radiologist and infectious disease were involved in your care. We investigated with panel of blood test for infection and all of the, were unremarkable. WBC, CRP, ESR, Procalcitonin which are most common and very specific parameters to define infection were persistently normal and it was always reassuring at your outpatient. You never had fever during admission and last fever was a month ago as you said, this is very reassuring as well. Throat swab test we did came back negative too. Hence we are not worried for any bacterial infection here. Few blood works as suggested by infectious disease are pending, which your PCP will be able to follow. We took second opinion from ID and radiology and decided to defer your lymph node biopsy for now as we are highly convinced this is reactive to sequences to infections you had in last month including pharyngitis, Flu and cellulitis, all of which is already resolved. It will take months for lymph nodes to resolve and come to normal size. You will be following with your PCP every week, who will follow you in between if you develop any new symptoms/ signs, he will take care of it. Some blood work including OSCAR, Bartonella, Throat Chlamydia, Gonorrhoea are pending, PCP will be able to review for you. A discharge summary will be sent to your primary care physician to ensure continuity of care. Please bring this discharge summary with you to your next office appointment so that your provider can review it at that time. Medications: Your medication list has been reviewed and reconciled upon discharge to ensure accuracy and continuity of care. An updated list of all your medications is included with your hospital discharge paperwork. Please review this list closely and make note of any changes to your medications. NO NEW MEDICATION. Follow up appointments: - Make a follow up appointment with your PCP within the next week. It is very important that you follow up with them shortly after discharge from the hospital. - Keep all of your follow up appointments as already scheduled. If you cannot make an appointment, notify your provider. CONTACT YOUR PRIMARY CARE PROVIDER if you experience any of the following: - Difficulty following your treatment plan - Difficulty taking any of your medications CALL 911 OR GO TO THE EMERGENCY DEPARTMENT if you experience any of the following: - Sudden, severe abdominal pain or nausea/vomiting - Severe chest pain or chest pain that radiates to your jaw or arm - Sudden, severe shortness of breath or difficulty breathing Pending Studies at Discharge: No Stand-Alone Forms: My [facility] [employer], Work/School Release, Smoking Cessation Medications and DC Order Prescriptions: Continued duloxetine 60 mg capsule,delayed release(DR/EC) 60 mg PO DAILY 90 Days Qty: 90 3RF norethindrone ac-eth estradiol [Microgestin 10/10 ()] 1-20 mg-mcg tablet 1 tab PO DAILY Qty: 84 3RF Rx Instructions: Continuous dosing ascorbate calcium (vitamin C) 500 mg tablet 500 mg PO DAILY Discontinued prednisone 10 mg tablet 40 mg PO DAILY 7 Days Qty: 28 0RF valacyclovir 500 mg tablet 500 mg PO BID PRN (Reason: cold sore) 3 Days Qty: 6 5RF penicillin V potassium 500 mg tablet 500 mg PO BID Qty: 20 0RF Discharge Orders: Discharge Order (Routine); Ordered 01/25/25 Ordered By: Nieves Brand Admission Data Admit Date/Time: 01/24/25 02:40 Attending Provider: Karson Barragan Admit Provider: Angel Leyva Primary Care Provider: Wallace Mckee Other Providers: Angel Leyva; Roxann Dietz; Roxanna Ibrahim; Nahomy Thakur; Chiqui Macedo; Valencia Mendoza; Jessa Merchant Other Interventions: Discharge Summary Assessment (RN) Last Done: 01/25/25 13:30 Supervising Physician Co-Signing Physician Notes I personally examined the patient and verified all hernandez points of history and exam, discussed case, and agree with decision making with Dr Brand feeling good. would like to go home. d/w ID - they agree situation seems most c/w reactive. d/w radiology re: biopsy - both IR PA and IR physician reviewed imaging and feel quite strongly that nodes are reactive - agreeable to doing bx if needed but do not feel that it would be of much diagnostic yield. d/w pt - with this she feels comfortable holding off on bx at this time. vitals noted nad heent nc at mmm breathing unlabored no accessory muscles good effort no new erythema exam as above and essentially unchanged. Adenopathy while active infection or lymphoma this processes would obviously be of biggest concern, her time course seems more fitting with infection than anything malignantunfortunately her CT chest from only a few days ago is exceedingly reassuring without concerning adenopathy, making lymphoma highly unlikely. All imaging re-reviewed by IR KINZA and [facility] and feel strongly this all looks reactive. Her lack of ongoing fevers, no leukocytosis, CRP of less than 0.5 (repeatedly) and procalcitonin of less than 0.2 and physical exam all plead away from active/ongoing infection. I suspect she probably had 2 processes at playprobably a fairly severe viral (with possibly secondary bacterial overgrowth) pharyngitis leading to the cervical adenopathy, as well as a week later right arm cellulitis (and given how she described it and the ongoing adenopathy probably right arm lymphangitis)and I suspect that the antibiotics that she was on clear the infection, but given that she had 2 infections at the same time, both provoking a significant degree of lymphadenopathy, this is probably why her nodes are still up. I do not necessarily see the benefit of ongoing antibiotics with no clear source of infection. In phone d/w ID they agree that it's unlikely there is active infection at play. Like infectious disease, I did consider Bartonellabut given her lack of ongoing fevers and given her negative CRP/procalcitonin, this seems quite unlikely (or if she had it, given that she was treated with doxycycline during her course it could have helped quell the infection - although by guidelines if bartonella were at play we'd likely want to treat longer - given this unlikely but potential conundrum of partially treated bartonella - agree w sending titer and would treat if positive - or if fevers recur without a clear alternate source). safe/stable for home. would f/u PCP ~weekly if possible for serial exams to ensure ongoing improvement. "arbitrary line" of ~1 month from now for bx if not clearly improving. revisit further w/u and labs/imaging/bx sooner if recurrent fevers or clinical worsening. pt enjoys fishing - d/w her to be cautious with insect repellant and tick checks given prevalence of tick borne illness in [facility] and it would be diagnostically quite problematic to acquire lyme/other tick borne illness while still under surveillance for resolution of adenopathy. safe/stable for home, PCP next week
--- NOTE | 2025-01-25 19:29 | Billing Data ---
Date of Service January 25, 2025 Coding Level of Care Code 65017 IN/OBS DISCH 30 MIN/LESS
[2025-01-25] MEDS ORDERED: PATIENT'S OWN ORAL CONTRACEPTIVE PO SCH (21:00)
[2025-01-26 12:42] LABS: Chlamydia trachomatis by NAA Not Detected (NotDetected); GC (Neis gonorrhoeae) by NAA Not Detected (NotDetected)
== END 2025-01-25 13:45 | disposition home or self-care (01) | DRG 153 ==
LOC: SUATTDRO → ED 20:42 → SUATTDRO 01-24 02:40 → 3W 01-24 02:40